=== PATIENT | female | born 1950 | race Caucasian/White ===

== ENCOUNTER 2022-07-28 18:01 | Emergency (ER) | payer OTHER, SELFPAY ==
[2022-07-28 18:14] VITALS: BP 148/89; PULSE 88; RESP 14; TEMP 36.6; O2SAT 96
--- NOTE | 2022-07-28 18:47 | ED.URI ---
HPI - URI/Sore Throat General Chief Complaint: Upper Respiratory Infection Stated Complaint: Sinus Time Seen by Provider: 07/28/22 18:20 Source: patient Mode of arrival: ambulatory Limitations: no limitations History of Present Illness HPI Narrative: Maggy is a 72-year-old female patient presenting to the clinic today with complaints of sinus congestion and cough x3 days. Or chills. She denies any shortness breath or chest pain. Thinks she may have allergies but feels as though the congestion is going down into her chest so she wanted to be evaluated MD elicited complaint: sore throat and nasal congestion Related Data Home Medications Medication Instructions Recorded Confirmed fluoxetine 20 mg capsule 20 mg PO DAILY 07/28/22 07/28/22 methylphenidate HCl 36 mg 36 mg PO DAILY 07/28/22 07/28/22 tablet,extended release 24 hr Allergies Allergy/AdvReac Type Severity Reaction Status Date / Time No Known Allergies Allergy Unknown Verified 07/28/22 18:38 Review of Systems Review of Systems: Pertinent positives per HPI. Patient denies any fever, chills, rash, headache, visual changes, dizziness, shortness of breath, chest pain, palpitations, nausea, vomiting, diarrhea, constipation, abdominal pain, or any urinary issues. PMFSH Comments At the time of my signature, I reviewed and agree with the nursing past medical, surgical, social, and family history. There is no relevant family history pertinent to the patient complaint. Exam Narrative: General: Well-developed, well nourished, in no apparent distress Head: Normocephalic, atraumatic Eyes: Pupils equally round and reactive to light bilaterally, EOM intact, sclera and conjunctive clear, no discharge, lids normal Ears: TMs intact and dull, ear canals clear, no drainage, grossly hearing normal. Nose: Nares patent, clear nasal discharge, no inflammation, no sinus tenderness. Mouth: Oral pharynx without lesions or masses, good dentition, MMM. Postnasal drip Neck: Supple, trachea midline, no enlargement of anterior or posterior cervical nodes, no thyroid masses or goiter palpable. Cardio: Regular rate and rhythm, s1 and s2 normal, no murmur appreciated. Resp: Clear to auscultation bilaterally, no rhonchi, rales, wheezing or rubs Course Course Emergency Course: Portions of this record may have been created with voice recognition software. Level of Care: Express Care Visit Vital Signs Vital signs: Vital Signs Temperature 36.6 C 07/28/22 18:14 Pulse Rate 88 07/28/22 18:14 Respiratory Rate 14 07/28/22 18:14 Blood Pressure 148/89 H 07/28/22 18:14 Pulse Oximetry 96 07/28/22 18:14 Oxygen Delivery Room Air 07/28/22 18:14 Temperature 36.6 C 07/28/22 18:14 Pulse Rate 88 07/28/22 18:14 Respiratory Rate 14 07/28/22 18:14 Blood Pressure 148/89 H 07/28/22 18:14 Pulse Oximetry 96 07/28/22 18:14 Oxygen Delivery Room Air 07/28/22 18:14 Vital signs reviewed MDM - URI/Sore Throat MDM Narrative Medical decision making narrative: At the time of visit patient is resting comfortably on the exam table. COVID test was obtained and was negative in the clinic today. I suspect the patient has URI. Will send a prescription for some prednisone for congestion. Supportive measures were discussed with the patient she voiced understanding discharge instructions agrees to treatment plan. Differential Diagnosis Differential diagnosis: Likely upper respiratory infection, sinusitis, viral infection, influenza and other (COVID) Lab Data Labs: Lab Results 07/28/22 Range/Units 18:20 POC SARS CoV-2 Ag Negative (Negative) Discharge Plan Discharge Clinical Impression: Upper respiratory infection Qualifiers: URI type: unspecified URI Qualified Code(s): J06.9 - Acute upper respiratory infection, unspecified Patient Disposition: Home, Self-Care Condition: Stable Instructions: Antibiotic Form, Upper Respiratory Infect
--- NOTE | 2022-08-04 17:27 | ED.URI ---
HPI - URI/Sore Throat General Chief Complaint: Upper Respiratory Infection Stated Complaint: Sinus Time Seen by Provider: 07/28/22 18:20 Source: patient Mode of arrival: ambulatory Limitations: no limitations Related Data Home Medications Medication Instructions Recorded Confirmed fluoxetine 20 mg capsule 20 mg PO DAILY 07/28/22 07/28/22 methylphenidate HCl 36 mg 36 mg PO DAILY 07/28/22 07/28/22 tablet,extended release 24 hr Allergies Allergy/AdvReac Type Severity Reaction Status Date / Time No Known Allergies Allergy Unknown Verified 08/04/22 17:27 Course Vital Signs Vital signs: Vital Signs Temperature 36.6 C 07/28/22 18:14 Pulse Rate 88 07/28/22 18:14 Respiratory Rate 14 07/28/22 18:14 Blood Pressure 148/89 H 07/28/22 18:14 Pulse Oximetry 96 07/28/22 18:14 Oxygen Delivery Room Air 07/28/22 18:14 Temperature 36.6 C 07/28/22 18:14 Pulse Rate 88 07/28/22 18:14 Respiratory Rate 14 07/28/22 18:14 Blood Pressure 148/89 H 07/28/22 18:14 Pulse Oximetry 96 07/28/22 18:14 Oxygen Delivery Room Air 07/28/22 18:14 MDM - URI/Sore Throat Lab Data Labs: Lab Results 07/28/22 Range/Units 18:20 POC SARS CoV-2 Ag Negative (Negative) Imaging Data My impression: agree with radiologist Radiologist's impression: Clinical Indication: Shortness of breath ?PA and lateral views of the chest: Comparison: None Findings: The lungs are clear, without evidence of focal consolidation or pleural effusion.? Cardiomediastinal silhouette is within normal limits. Bones and soft tissues are unremarkable. ? Impression: ? Normal chest. Discharge Plan Discharge Clinical Impression: Upper respiratory infection Patient Disposition: Home, Self-Care Condition: Stable Instructions: Antibiotic Form, Upper Respiratory Infection (ED) Additional Instructions: COVID testing was negative in the clinic today Take prescription medications only as prescribed-prednisone Increase fluids and stay well hydrated Tylenol/motrin for pain/fever Flonase and OTC antihistamines as directed Vicks vapor rub to open sinuses Sinus rinses for congestion Cepacol spray, cough drops, throat lozenges, warm tea with honey/lemon, gargle salt water to soothe throat BRAT diet for diarrhea Clear liquids x 24 hours then advance as tolerated for nausea/vomiting Go to the ED if you develop a worsening in your condition- high fever not controlled by Tylenol or Motrin, dehydration, weakness, lethargy, shortness of breath, or chest pain. Follow up with your PCP in 3-5 days if symptoms persist. Prescriptions: New prednisone 20 mg tablet 40 mg PO DAILY 5 Days Qty: 10 0RF No Action fluoxetine 20 mg capsule 20 mg PO DAILY methylphenidate HCl 36 mg tablet extended release 24hr 36 mg PO DAILY Follow-up/Referrals: Sanket Qureshi [Other] Time of Disposition: 18:48
== END 2022-07-28 18:55 | disposition home or self-care (01) ==
PROVIDERS: Emergency Provider Nurse Practitioner Family
DX: J06.9 Acute upper respiratory infection, unspecified (principal); Z20.822 Contact with and (suspected) exposure to COVID-19; F98.8 Other specified behavioral and emotional disorders with onset usually occurring in childhood and adolescence
CPT/HCPCS: 87426; 99213; C9803; G0463

== ENCOUNTER 2022-08-04 17:10 | Emergency (ER) | payer OTHER, SELFPAY ==
--- NOTE | ~2022-08-04 | XR_ITS ---
Clinical Indication: Shortness of breath PA and lateral views of the chest: Comparison: None Findings: The lungs are clear, without evidence of focal consolidation or pleural effusion. Cardiome diastinal silhouette is within normal limits. Bones and soft tissues are unremarkable. Impression: Normal chest. Reviewed, dictated and finalized at [facility]. NEL EXECUTIVE Impression: Normal chest.
[2022-08-04 17:28] VITALS: BP 144/82; PULSE 78; RESP 18; TEMP 36.3; O2SAT 100
[2022-08-04 17:30] VITALS: BP 144/82; PULSE 78; RESP 18; TEMP 36.3; O2SAT 100
--- NOTE | 2022-08-04 18:42 | ED.URI ---
HPI - URI/Sore Throat General Chief Complaint: Upper Respiratory Infection Stated Complaint: chest congestion Time Seen by Provider: 08/04/22 17:35 Source: patient Mode of arrival: ambulatory Limitations: no limitations History of Present Illness HPI Narrative: 72 yo F presents with c/o fatigue. States she was out shopping today pushing a cart and felt winded. Also reports 3 days ago did yard work for 2 to 3 hours, picking up limbs, and felt more tired than usual. Pt had recent URI. Was seen here. States cough is better. Took mucinex and prednisone and is done with prescriptions. No recent fever. No SOB or CP at this time. pt reports that she has been very sad since her mother one month ago. States her whole schedule has been off and she is staying up late til 2 or 3am and not eating well. She has a psychaitrist and also has done counseling. 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 She is trying to get back into a normal routine. She also reports that she is a hoarder and that her family has been hard on her about it. She has friends and an uncle that she talks to that help her feel better. She denies SI/HI. All systems reviewed and negative except as noted above. Related Data Home Medications Medication Instructions Recorded Confirmed fluoxetine 20 mg capsule 20 mg PO DAILY 07/28/22 08/04/22 methylphenidate HCl 36 mg 36 mg PO DAILY 07/28/22 08/04/22 tablet,extended release 24 hr Allergies Allergy/AdvReac Type Severity Reaction Status Date / Time No Known Allergies Allergy Unknown Verified 08/04/22 17:27 Review of Systems Review of Systems: CONSTITUTIONAL: Denies fever, chills, or sweats. reports fatigue. EYES: Denies visual changes, redness, or discharge. ENT: Denies rhinorrhea, congestion, sore throat, or otalgia. CARDIOVASCULAR: Denies chest pain, palpitations, or edema. RESPIRATORY: Denies cough or dyspnea. GASTROINTESTINAL: Denies abdominal pain, nausea, vomiting, or diarrhea. GENITOURINARY: Denies dysuria or hematuria. SKIN: Denies rash or itching. MUSCULOSKELETAL: Denies back pain, joint pain, or myalgia. NEUROLOGIC: Denies headache, numbness, or weakness. PSYCHIATRIC: Denies anxiety or depression. All other systems reviewed are negative, except as documented in HPI. PMFSH Comments At time of signature, agree with nursing past medical, surgical, social and family history. There is no relevant family history pertinent to the presenting complaint. Exam Narrative: GENERAL: This is a well-nourished, well-developed patient, in no apparent distress. HEAD: normocephalic, atraumatic. EYES: PERRL. Sclera clear/white. Vision is grossly intact. EARS: External ears normal, auditory canals clear and without drainage, TMs normal without perforation. Hearing grossly intact. NOSE: External nose normal with no obvious nasal discharge, nares without redness, no rhinorrhea. THROAT: Mucous membranes moist, posterior pharynx clear. NECK: Neck supple, non-tender without lymphadenopathy, masses or thyromegaly. CARDIOVASCULAR: Regular rate and rhythm without murmurs, gallops, or rubs. RESPIRATORY: Clear to auscultation. Breath sounds equal bilaterally. No wheezes, rales, or rhonchi. GASTROINTESTINAL: Abdomen soft, non-tender, nondistended. Bowel sounds are active. No hepato-splenomegaly, or palpable masses. No guarding. SKIN: warm, Dry, intact with no suspicious lesions or rash, good texture and turgor. NEURO: awake, alert, and oriented to person, place and time. There were no obvious focal neurologic abnormalities. EXTREMITIES: No joint tenderness, effusion, or edema noted. Course Course Level of Care: Express Care Visit Vital Signs Vital signs: Vital Signs Temperature 36.3 C L 08/04/22 17:28 Pulse Rate 78 08/04/22 17:28 Respiratory Rate 18 08/04/22 17:28 Blood Pressure 144/82 H 08/04/22 17:28 Pulse Oximetry 100 08/04/22 17:28 Oxygen
== END 2022-08-04 19:02 | disposition home or self-care (01) ==
PROVIDERS: Emergency Provider Nurse Practitioner Family
DX: R53.83 Other fatigue (principal); F41.9 Anxiety disorder, unspecified; F98.8 Other specified behavioral and emotional disorders with onset usually occurring in childhood and adolescence
CPT/HCPCS: 71046; 99213; G0463

== ENCOUNTER 2023-05-01 13:30 | Outpatient (RCR) | payer OTHER, SELFPAY ==
--- NOTE | 2023-04-02 16:15 | OPREHPOC ---
Outpatient Therapy Plan of Care This is a Multidisciplinary Plan of Care that may contain components documented by all disciplines (PT, OT, and ST.) PT Problem 1 PT Problem #1 Knowledge Deficit PT Goal 1 Goal 1*indep with HEP PT Problem 2 PT Problem #2 Pain PT Goal 1 Goal 1* pt report pain rating at 3/10 at worst PT Problem 3 PT Problem #3 Impaired Strength PT Goal 1 Goal increase strength of R knee and hip to improve stability to knee joint and improve position: 1* pt perform mat exercises 15 reps with 3# wt 2* pt perform standing exercises with 1 UE support 15 reps with 3# wt
--- NOTE | 2023-04-02 16:16 | PTOPEVAL1 ---
Assessment and note entered by Dionne White, PT Evaluation Information Assessment Status Evaluation Diagnosis R knee pain Onset about 1 year Subjective Information gradual increase in knee pain, without injury or trauma to leg; had injection Mar 18 with decreased pain; ACTIVITY: do not use assistive device; in home, can do all home and self care tasks; cannot do yard work as she used to; is not doing any fitness exercises; Reported Pain Level Pain Score Self Report Additional Pain Score Comments pain range in the past week 0-5; medial knee increase pain: able to walk about 1/2 mile; in bed and move positions decrease pain: sit, rest, aleve PRN do not use heat, ice- instruct on PRN use; pain in L knee also Assessment PT Clinical Summary Ophelia has the diagnosis of R knee pain/OA. She had a knee injection which decreased her pain. She is retired and has decreased activity level, does not do any regular fitness exercises. She is trying to walk a little more. With the evaluation: she has good flexibility of her hips and knees; in standing, valgus knee position with changes in ankle also; strength with mat exercises is good. Skilled PT services are indicated for modalities to decrease pain; therapeutic exercises to increase stability and strength of knee with education for home exercises and pain control. Plan of Care Interventions Electrical Stimulation,Hot Pack/Cold Pack,Manual Therapy,Neuro Re-education,Patient Education,Therapeutic Activities,Therapeutic Exercise,Ultrasound,Other Other Interventions taping PT Services Indicated Yes Treatment Frequency and 1-2x/wk for 4 weeks Duration These treatments will address the objective and functional deficits as defined above. The patient will be advanced safely and appropriately in order for the patient to progress towards his/her prior level of function. Additional exercises will be introduced and as well as a comprehensive home exercise program upon discharge, if needed, ?to ensure carryover of functional gains achieved in the clinic. This treatment plan has been reviewed and agreement upon by the patient.
--- NOTE | 2023-04-10 14:27 | PCPTNOTE ---
Patient did not show up for appointment on 04/10/23. When called she stated she had not put the appointment on her calendar.
--- NOTE | 2023-04-12 14:23 | PCPTNOTE ---
pt called and canceled today's appt due to illness.
--- NOTE | 2023-05-01 14:20 | PTOPDC ---
Assessment and note entered by Dionne White, PT Evaluation Information Assessment Status Discharge Diagnosis R knee pain Onset about 1 year Subjective Information is doing better; saw yesterday- said she could have her knee replaced whenever she wants to have the surgery; exercises have helped, but is not always good to do them, because of stomach issues and diarrhea; is doing everything she needs to do; Reported Pain Level Pain Score Self Report Additional Pain Score Comments pain range in the past week 0- 3/10 increase pain at end of day; standing/walking for few hours, then have to sit down due to knee and back pain; decrease pain: sit, rest is not using ice or pain meds--not need it; Assessment PT Clinical Summary Ophelia has received 6 PT sessions. She called/ canceled 1 and did not show for 1 appointment. Compared to the initial evaluation: pain rating at worst from 5 to 3/10; increase strength of hip and knee; increase home activity tolerance; education for home exercises; The goals were achieved. Discharge PT services. She is to continue with her HEP. Plan of Care PT Services Indicated No
== END 2023-05-01 14:32 | disposition home or self-care (01) ==
LOC: ANHPT 13:30
PROVIDERS: Visit Provider Orthopaedic Surgery
DX: M25.561 Pain in right knee (principal)
CPT/HCPCS: 97110; 97161; 97530; 99199

== ENCOUNTER 2024-09-25 10:48 | Outpatient (CLI) | payer OTHER, SELFPAY ==
[2024-09-25 13:01] LABS: Basophils Percent Auto 0.6 % (0.2-1.2); Eosinophils Absolute Auto 0.1 K/mm3 (0-0.3); Eosinophils Percent Auto 2.7 % (0-4.4); Hematocrit 37.8 % (37.0-47.0); Hemoglobin 12.5 g/dL (12.0-15.0); Immature Granulocyte Absolute 0.03 K/mm3 (0.00-0.031); Immature Granulocyte Percent A 0.6 % (0-0.5); Lymphocytes Absolute Auto 1.22 K/mm3 (0.9-3.2); Lymphocytes Percent Auto 25.2 % (18.3-44.2); Mean Corpuscular HGB Conc 33.1 g/dl (32-36); Mean Corpuscular Volume 90.9 fl (80-100); Mean Platelet Volume 8.5 fl (7.4-10.4); Monocytes Absolute Auto 0.5 K/mm3 (0.1-0.6); Monocytes Percent Auto 9.5 % (2.6-8.5); Neutrophils Percent Auto 61.4 % (45.5-73.1); Platelet Count Result 331 k/mm3 (150-375); Red Blood Count 4.16 M/mm3 (4.2-5.4); Red Cell Distribution Width 13.1 % (11.5-14.5); White Blood Count 4.9 K/mm3 (4.5-10.0)
[2024-09-25 13:16] LABS: Urine Cotinine NEGATIVE
[2024-09-25 14:08] LABS: Hemoglobin A1C 5.3 % (<5.7)
[2024-09-25 14:12] LABS: MRSA (PCR) NOT DETECTED (NOT DETECTE)
--- OUTSIDE RECORDS SUMMARY | 2024-09-26 12:13 | XMS_ITS | Patient Health Record ---
Author Organization [facility] Address [address] [facility] [address] [place] [address] Care Team Providers Care Yard Assistant Name Role Phone Sanket Qureshi MD Primary Care Provider Unavail able Edita Yepez Unavailable [phone] Migration, Provider Unavailable Unavailable Allergies No Known Allergies Reason For Referral No Information Medications Medication SIG (Take, Route, Frequency, Duration) Notes Start Date End Date Status FLUoxetine HCl 20 MG 3 capsule Oral Once a day for 90 days Active Atomoxetine HCl 25 MG 1 capsule Orally o nce daily for 90 days Active Atorvastatin Calcium 20 MG Oral 07/26/2023 Active Social History Tobacco Use: Social History Observation Description Date Details (start date - stop date) Never Smoker NA - NA Sex Assigned At : Social History Observation Description Sex Assigned At Female Household Question Answer Notes Marital status: single Number of adults in household: 1 Tobacco Control (Standard) Question Answer Notes Tobacco use: Nonsmoker Problems Problem Type SNOMED Code ICD Code Onset Dates Problem Status W/U Status Risk Notes Problem Mild recurrent major depression (87709198) Major depressive disorder, recurrent, mild (F33.0) Active confirmed Problem [id number] SHADY (generalized anxiety disorder) (F41.1) Active confirmed Problem 254453919 MDD (major depressive disorder), recurrent episode, mild (F33.0) Active confirmed Problem 88454164 Attention defici t hyperactivity disorder (ADHD), combined type, mild (F90.2) Active confirmed Vital Signs Heart Rate 95 /min 09/17/2024 Height-cm 167.64 cm 09/17/2024 Blood pressure diastolic 100 mm Hg 09/17/2024 Weight-kg 80.29 kg 09/17/2024 Height 66.00 in 09/17/2024 Blood pressure systolic 150 mm Hg 09/17/2024 Weight 177 lbs 09/17/2024 BMI 28.57 kg/m2 09/17/2024 Encounters Encounter Location Date Provider Diagnosis [facility] [place] [address] [address] 10/29/2023 Edita Marleni MDD (major depressiv e disorder), recurrent episode, mild F33.0 ; SHADY (generalized anxiety disorder) F41.1 and Attention deficit hyperactivity disorder (ADHD), combined type, mild F90.2 [facility] [place] [address] 12/26/2023 Edita Marleni MDD (major depressiv e disorder), recurrent episode, mild F33.0 ; SHADY (generalized anxiety disorder) F41.1 and Attention deficit hyperactivity disorder (ADHD), combined type, mild F90.2 [facility] [address] [address] 03/27/2024 Edita Marleni MDD (major depressiv e disorder), recurrent episode, mild F33.0 ; SHADY (generalized anxiety disorder) F41.1 and Attention deficit hyperactivity disorder (ADHD), combined type, mild F90.2 [facility] [place] [address] 06/25/2024 Edita Marleni MDD (major depressiv e disorder), recurrent episode, mild F33.0 ; SHADY (generalized anxiety disorder) F41.1 and Attention deficit hyperactivity disorder (ADHD), combined type, mild F90.2 [facility] [place] [address] 09/17/2024 Edita Marleni Encounter for screening for cardiovascular disorders Z13.6 ; Dietary counseling and surveillance Z71.3 ; Encounter for screening for depression Z13.31 ; MDD (major depressive disorder), recurrent episode, mild F33.0 ; SHADY (generalized anxiety disorder) F41.1 and Attention deficit hyperactivity disorder (ADHD), combined type, mild F90.2 [facility] [place] [address] [address] 10/12/2023 Provider Migration [facility] [employer] [address] [facility] [address] [place] [address] 10/13/2023 Provider Migration Assessments Encounter Date Diagnosis (ICD Code) Assessment Notes Treatment Notes Treatment Clinical Notes Section Notes 10/29/2023 SHADY (generalized anxiety disorder) (ICD-10 - F41.1) Stable Stable, no concerns today. No side effects to current medications . 10/29/2023 MDD (major depressive disorder), recurrent episode, mild (ICD-10 - F33.0) Stable Stable, no concerns today. No side effects to current medications . 12/26/2023 MDD (major depressive disorder), recurrent episode, mild (ICD-10 - F33.0) 03/27/2024 MDD (major depressive disorder), recurrent episode, mild (ICD-10 - F33.0) 06/25/2024 MDD (major depressive disorder), recurrent episode, mild (ICD-10 - F33.0) SSRI/SNRI side effects discussed including but not limited to, gastric upset, nausea, vomiting, diarrhea and/or constipation, weight changes, sexual side effects including loss of libido, increased suicidal thoughts/behavior s in children and young adults, and serotonin syndrome. 09/17/2024 Encounter for screening for cardiovascular disorders (ICD-10 - Z13.6) 09/17/2024 Dietary counseling and surveillance (ICD-10 - Z71.3) 03/27/2024 SHADY (generalized anxiety disorder) (ICD-10 - F41.1) Stable 06/25/2024 SHADY (generalized anxiety disorder) (ICD-10 - F41.1) Stable fluoxetine 60mg daily 10/29/2023 Attention deficit hyperactivity disorder (ADHD), combined type, mild (ICD-10 - F90.2) Restart atomoxetine 10mg daily for ADHD. Stable, no concerns today. No side effects to current medications . 12/26/2023 SHADY (generalized anxiety disorder) (ICD-10 - F41.1) Stable 06/25/2024 Attention deficit hyperactivity disorder (ADHD), combined type, mild (ICD-10 - F90.2) Discussed risks/benefits/al ternatives to atomoxetine, including GI side effects, weight loss, irritability, constipation, sexual dysfunction, increase in blood pressure and liver damage. Patient denies any h/o cardiovascular disease, including hypertension, tachyarrhythmias. 03/27/2024 Attention deficit hyperactivity disorder (ADHD), combined type, mild (ICD-10 - F90.2) 12/26/2023 Attention deficit hyperactivity disorder (ADHD), combined type, mild (ICD-10 - F90.2) 09/17/2024 Encounter for screening for depression (ICD-10 - Z13.31) 09/17/2024 MDD (major depressive disorder), recurrent episode, mild (ICD-10 - F33.0) SSRI/SNRI side effects discussed including but not limited to, gastric upset, nausea, vomiting, diarrhea and/or constipation, weight changes, sexual side effects including loss of libido, increased suicidal thoughts/behavior s in children and young adults, and serotonin syndrome. 09/17/2024 SHADY (generalized anxiety disorder) (ICD-10 - F41.1) Stable fluoxetine 60mg daily 09/17/2024 Attention deficit hyperactivity disorder (ADHD), combined type, mild (ICD-10 - F90.2) Discussed risks/benefits/al ternatives to atomoxetine, including GI side effects, weight loss, irritability, constipation, sexual dysfunction, increase in blood pressure and liver damage. Patient denies any h/o cardiovascular disease, including hypertension, tachyarrhythmias. 12/26/2023 Other Overall stable, continue current medications. Refills sent in. Patient educated on all medications including potential benefits, side effects, risks. Educated on proper dosing schedule and importance of compliance. 06/25/2024 Other Stable, continue current medications. Refills sent in. Patient educated on all medications including potential benefits, side effects, risks. Educated on proper dosing schedule and importance of compliance. Supportive therapy provided regarding hoarding behaviors -Assessment and treatment plan reviewed with patient. -Compliance with treatment plan importance discussed. -Discussed the risks/benefits of this medication -Discussed medication side effects. -Contact office if symptoms worsen. -Discussed that it can take up to 6-8 weeks to see full therapeutic effects of psychotropic medications. -Crisis prevention hotline 988. 09/17/2024 Other Increase atomoxetine to 25mg daily for focus, concentration, forgetfulness. Patient educated on all medications including potential benefits, side effects, risks. Educated on proper dosing schedule and importance of compliance. Cont counseling with Briana -Assessment and treatment plan reviewed with patient. -Compliance with treatment plan importance discussed. -Discussed the risks/benefits of this medication -Discussed medication side effects. -Contact office if symptoms worsen. -Discussed that it can take up to 6-8 weeks to see full therapeutic effects of psychotropic medications. -Crisis prevention hotline 849. Plan Of Treatment Next Appt Details Provider Name:Edita Yepez, 11/30/2024 01:00:00 PM, [facility], [facility] [address], [place], [address], Insurance Providers Payer Name Payer Address Payer Phone Subscriber Number Group Number Insured Name Patient Relationship to Insured Coverage Start Date Coverage End Date [employer] Medicare Replacement/ Advantage - Hmo [address] [place] [phone] [id number] DANAE ADAM Self - patient is the insured Medical (General) History Medical History History ICD Code Problems: Attention deficit hyperactivit y disorder, combined type Generalized anxiety disorder Mild recurrent major depression , Hospitalization History Reason Date(Month/Year) No hx IP admissions
--- OUTSIDE RECORDS SUMMARY | 2024-09-26 12:13 | XMS_ITS | Clinical Summary ---
Author Organization [facility] Address [address] [place] [address] Care Team Providers Care Social Media Senior Associate Name Role Phone Sanket Qureshi MD Primary Care Provider [phone] Allergies No known active allergies Medications multivitamin (DAILY-VERENA) tablet Take 1 Tablet by mouth daily. Active cetirizine (ZyrTEC) 10 mg tablet Take 10 mg by mouth daily. Active FLUoxetine (PROzac) 20 mg capsuleIndications :Severe episode of recurrent major depressive disorder, without psychotic features (CMS/HCC) Take 1 Capsule (20 mg) by mouth daily. 30 Capsule 3 08/03/19 21 Active Additional Information Patient taking differently:20 mg Oral DAILY,Takes 3 capsules in the morning, Reported on 09/23/2024 methylphenidate HCl (CONCERTA) 36 mg Extended Release tablet Take 1 Tablet by mouth daily. 03/14/20 21 Active vitamin B complex Tablet Sustained Release Take 1 Tablet by mouth daily. Active atomoxetine (STRATTERA) 25 mg capsule Take 10 mg by mouth daily. 03/28/20 23 Active naproxen sodium (ALEVE) 220 mg Tablet Take 220 mg by mouth. Active atorvastatin (LIPITOR) 20 mg tabletIndications: Mixed hyperlipidemia Take 1 Tablet (20 mg) by mouth daily at bedtime. For control of cholesterol 90 Tablet 2 09/24/19 25 Active atorvastatin (LIPITOR) 20 mg tabletIndications: Mixed hyperlipidemia Take 1 Tablet (20 mg) by mouth daily at bedtime. 90 Tablet 1 03/19/20 24 025 Discontin ued(Reord er) Active Problems Problem Noted Date Diagnosed Date Hoarding disorder 12/05/2021 Overview (12/05/2021): Supportive counseling recommend discuss with Dr Schuster. Adult ADHD 12/05/2021 Overview (12/05/2021): Dr Schuster Primary osteoarthritis of right knee 12/05/2021 Overview (12/05/2021): /Program/avoid overuse/OTC analgesics as needed Moderate recurrent major depression 11/10/2020 Overview (11/10/2020): Stay on same meds, fluoxetine 20 mg per day . Doing well /Fu 03/16 Wellness Insurance coverage problems 11/10/2020 Overview (11/10/2020): Encouraged pt to enroll in Medicare, she has the information at home . Mixed hyperlipidemia 05/26/2018 Encounters Date Type Department Care Team Description 09/25/2024 Telephone [facility] [address] [place] [phone] Sanket Qureshi MD Provider Call 09/23/2024 10:00 AM CDT Office Visit [facility] [address] [place] [phone] Sanket Qureshi MD Preop examination (Primary Dx); Screening for disorder of blood and blood-forming organs; Primary osteoarthritis of right knee; Mixed hyperlipidemia; Moderate recurrent major depression ([facility]); Encounter for long-term (current) use of medications; Adult ADHD 09/13/2024 Refill [facility] [address] [place] [phone] Sanket Qureshi MD Mixed hyperlipidemia 09/09/2024 Telephone [facility] [address] [place] [phone] Sanket Qureshi MD Pre op clearance form; Patient Communication 09/09/2024 Abstract [facility] [address] [place] [phone] Sanket Qureshi MD 09/09/2024 Telephone [facility] [address] [place] [address] Sanket Qureshi MD Provider Call 08/27/2024 Abstract [facility] [address] [place] [address] Sanket Qureshi MD 08/24/2024 Telephone [facility] [address] [place] [phone] Sanket Qureshi MD Needs Orders Written; Provider Call 08/12/2024 External Device Data ST[facility] ABSTRACTION Provider, Abstract 08/01/2024 External Device Data [place] ABSTRACTION Provider, Abstract 07/31/2024 External Device Data [place]STRACTION Provider, Abstract 07/29/2024 External Device Data [place]STRACTION Provider, Abstract 07/14/2024 External Device Data [place]STRACTION Provider, Abstract from Last 3 Months Immunizations Immunization Administration Dates Next Due (ADACEL/BOOSTRIX)(10 YR UP) TDAP VACCINE, 0.5ML, IM 05/24/2009 (PFIZER EDDIE)(12 YR UP PRIMA RY SERIES) COVID-19 VACCINE - EMERGENCY USE AUTHORIZATION, MRNA, EDDIE(PF) 30 MCG/0.3 ML IM SUSP 04/06/2022 (PFIZER)(12 YR UP) COVID-19 VACCINE - EMERGENCY USE AUTHORIZATION, MRNA, [id number](PF) 30 MCG/0.3 ML IM SUSP 07/08/2021,08/20/2020,07/21/2020 (PNEUMOVAX 23)(50 YRS UP) PN EUMOCOCCAL POLYSACCHARIDE (PPV23) 0.5 ML, IM 08/03/2019 INFLUENZA VACCINE HIGH DOSE QUADRIVALENT 65 YR UP PF IM 03/20/2021,02/09/2020 INFLUENZA VACCINE QUADRIVALE NT 3 YR UP PF IM 07/21/2018 Influenza Seasonal Unspecifi ed Formulation IM 06/24/2017,06/21/2016,05/13/2014 PNEUMOVAX (PPSV23) pneumococ tanesha polysaccharide 23-valent Vaccine 11/18/2013 PREVNAR (PCV13) pneumococcal 13-valent conjugate Vaccine 06/21/2016 Zoster Vaccine Live SQ 05/13/2014 Family History Medical History Relation Name Comments Pancreatic Cancer Father Hypertension Mother Ngoc Croft Healthy Sister 1 Roseanna Thyroid Disease Sister 1 Roseanna Healthy Sister 2 Lili Bentiez Relation Name Status Comments Father (Age 72) of pa ncreatic cancer Maternal Grandfather Maternal Grandmother Mother Ngoc Croft (Age 93) 3 post hip fracture and complications, in [facility] Paternal Grandfather Paternal Grandmother Sister 1 Roseanna Alive Sister 2 Lili Benitez Alive Social History Tobacco Use Types Packs/Day Years Used Date Smoking Tobacco: Never Smokeless Tobacco: Never Tobacco Cessation:Counseling Given: Not Answered Alcohol Use Standard Drinks/Week Comments Yes 2 (1 standard drink = 0.6 oz pur e alcohol) daily Education Answer Date Recorded What is the highest level of school you have completed or the highest degree you have received? 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 Gender Identity Not on file Sexual Orientation Not on file Last Filed Vital Signs Vital Sign Reading Time Taken Comments Blood Pressure 118/68 09/23/2024 10:11 AM CDT Pulse 78 09/23/2024 10:11 AM CDT Temperature 36.4 C (97.6 F) 08/02/2020 1:30 PM GROUND OPER[employer]BER Respiratory Rate 18 01/09/2023 12:50 PM CDT Oxygen Saturation 99% 01/13/2024 12:49 PM CDT Inhaled Oxygen Concentration - - Weight 80.1 kg (176 lb 8 oz) 09/23/2024 10:11 AM CDT Height 167.6 cm (5' 6 ) 09/23/2024 10:11 AM CDT Body Mass Index 28.49 09/23/2024 10:11 AM CDT Plan of Treatment Upcoming Encounters Date Type Department Care Team (Late st Contact Info) Description 01/13/2025 1:00 PM CDT Office Visit [facility] [address] [place] [address] Sanket Qureshi MD [address] [place] [address] Health Maintenance Due Date Last Done Comments FIT/ DNA Q 3 YEARS (AUTO ORDER) 1969 FIT/FOBT Q 1 YEAR (AUTO ORDER) 1969 FLEX SIG/CT COLONOGRAPHY Q 5 YEARS (AUTO ORDER) 1969 BREAST CANCER SCREENING 1991 FIT-DNA Q 3 years 1996 FIT/FOBT Q 1 year 1996 Flex Sig/CT Colonography Q 5 years 1996 ZOSTER VACCINE (2 of 3) 07/08/2014 05/13/2014 OSTEOPOROSIS SCREENING 2016 DTAP/TDAP/TD VACCINES (2 - T d or Tdap) 05/24/2019 05/24/2009 INFLUENZA VACCINE (#1) 2023 , 02/09/2020, 07/21/2018, Additional history exists COVID-19 Vaccine ( - 2023-2 5 season) 2024 04/06/2022, 07/08/2021, 08/20/2020, Additional history exists COLORECTAL CANCER SCREENING (AUTO ORDER) 04/08/2024 04/08/2014 COLORECTAL SCREENING 04/08/2024 04/08/2014, 04/08/20 14 Colorectal Cancer Screening (AUTO ORDER) 04/08/2024 Colorectal Cancer Screening 04/08/2024 [place] Preventative Visit/Annual Wellness Visit 05/27/2024 01/13/2024, 01/09/2023, 12/05/2021, Additional history exists RSV VACCINE (60+ or ) (1 - 1-dose 75+ series) 2026 PNEUMOCOCCAL VACCINE 50+ YEARS Completed 0 08/03/2019, 06/21/2016, 11/18/2013 Procedures Procedure Name Priority Date/Time Associated Diagnosis Comments PROTIME-INR Routine 09/23/2024 2:41 PM CDT CBC WITHOUT DIFFERENTIAL Routine 09/23/2024 2:41 PM CDT Preop examination Encounter for long-term (current) use of medications COMPREHENSIVE METABOLIC PANEL Routine 09/23/2024 2:41 PM CDT Preop examination Encounter for long-term (current) use of medications EKG 12-LEAD Routine 09/23/2024 Preop examination Mixed hyperlipidemia ENDOSCOPY, COLON, SCREENING Routine 04/08/2014 from Last 3 Months or Most Recently Relevant to Health Maintenance Results * PROTIME-INR (09/23/2024 2:41 PM CDT) INR 1.0 [facility] Comment: Reference Range 0.9-1.1 Moderate-intensity Warfarin Therapy 2.0-3.0 Higher-intensity Warfarin Therapy 3.0-4.0 PROTIME 11.1 9.0 - 11.5 sec [facility] Comment: For additional information, please refer to http://education.Intern [place]/faq/XLP751 (This link is being provided for informational/ educational purposes only.) Test Performed at: [place] [address] [place] [address] Gucci Tipton 09/23/2024 2:4 1 PM CDT 09/23/2024 2:41 PM CDT us Sanket Qureshi MD HEMATOLOGY ORDERABLES Final Re sult [facility] [phone] [place] [address] [place] [address] * CBC WITHOUT DIFFERENTIAL (09/23/2024 2:41 PM CDT) WBC 6.5 3.8 - 10.8 Thousand/u L [facility] RBC 4.02 3.80 - 5.10 Million/uL [facility] HEMOGLOBIN 12.2 11.7 - 15.5 g/dL [facility] HEMATOCRIT 37.1 35.0 - 45.0 % [facility] MCV 92.3 80.0 - 100.0 fL [facility] MCH 30.3 27.0 - 33.0 pg [facility] MCHC 32.9 32.0 - 36.0 g/dL [facility] Comment: For adults, a slight decrease in the calculated MCHC value (in the range of 30 to 32 g/dL) is most likely not clinically significant; however, it should be interpreted with caution in correlation with other red cell parameters and the patient's clinical condition. RDW 12.7 11.0 - 15.0 % [facility] PLATELETS 334 140 - 400 Thousand/u L [facility] MPV 8.9 7.5 - 12.5 fL [facility] Comment: Test Performed at: [facility] [address] [place] [id number] Gucci Tipton MD Blood 09/23/2024 2:41 PM CDT 09/23/2024 2:41 PM CDT us Sanket Qureshi MD HEMATOLOGY ORDERABLES Final Re sult [facility] [phone] [address] * (ABNORMAL) COMPREHENSIVE METABOLIC PANEL (09/23/2024 2:41 PM CDT) Pathologist [facility] GLUCOSE 95 65 - 99 mg/dL [facility] Comment: Fasting reference interval BUN 12 7 - 25 mg/dL [facility] CREATININE 0.89 0.60 - 1.00 mg/dL [facility] GFR 68 > OR = 60 mL/min/1. 73m2 [facility] BUN/CREAT RATIO SEE NOTE: 6 - 22 (calc) [facility] Comment: Not Reported: BUN and Creatinine are within reference range. SODIUM 129(L) 135 - 146 mmol/L [facility] POTASSIUM 4.1 3.5 - 5.3 mmol/L [facility] CHLORIDE 95(L) 98 - 110 mmol/L [facility] CO2 26 20 - 32 mmol/L [facility] CALCIUM 9.0 8.6 - 10.4 mg/dL [facility] TOTAL PROTEIN 6.8 6.1 - 8.1 g/dL [facility] ALBUMIN 4.4 3.6 - 5.1 g/dL [facility] GLOBULIN 2.4 1.9 - 3.7 g/dL (calc) [facility] ALBUMIN/GLOBULIN RATIO 1.8 1.0 - 2.5 (calc) [facility] BILIRUBIN TOTAL 0.7 0.2 - 1.2 mg/dL [facility] ALKALINE PHOSPHATASE 77 37 - 153 U/L [facility] AST 26 10 - 35 U/L [facility] ALT 31(H) 6 - 29 U/L [facility] Comment: Test Performed at: [facility] [address] [place] [address] Gucci Tipton MD Blood 09/23/2024 2:41 PM CDT 09/23/2024 2:41 PM CDT Sanket Qureshi MD CHEMISTRY ORDERABLES Final Res ult Performing Organization Address [facility]/State/ZIP Co de Phone Number [facility] [phone] [facility] [address] [place] [address] * EKG 12-LEAD (09/23/2024) Sanket Qureshi MD ECG ORDERABLES Final Result [facility] CLIA# [id number] [address] [place] [address] * ENDOSCOPY, COLON, SCREENING (04/08/2014) Abstract Provider GI PROCEDURE ORDERABLES Edited Result - Final Performing Organization Address City/[facility]/ZIP Co de Phone Number [facility] CLIA# [id number] [address] [place] [address] from Last 3 Months or Most Recently Relevant to Health Maintenance [facility] Care Teams Social Media Senior Associate Relationship Specialty Start Date End Date Sanket Qureshi MD PCP - General Family Practice 06/18/18
--- OUTSIDE RECORDS SUMMARY | 2024-09-26 12:13 | XMS_ITS | Encounter Summary ---
Author Organization [facility] Address 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 Gender Identity Not on file Sexual Orientation Not on file documented as of this encounter Plan of Treatment Upcoming Encounters Date Type Department Care Team (Late st Contact Info) Description 01/13/2025 1:00 PM CDT Office Visit [facility] [place] [address] [place] [address] Sanket Qureshi MD [address] [place] [address] documented as of this encounter Visit Diagnoses Not on filedocumented in this encounter Care Teams Bpm Analyst Relationship Specialty Start Date End Date Sanket Qureshi MD PCP - General Family Practice 06/18/18 documented as of this encounter
--- OUTSIDE RECORDS SUMMARY | 2024-09-26 12:13 | XMS_ITS | Encounter Summary ---
Author Organization [facility] Address 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 Gender Identity Not on file Sexual Orientation Not on file documented as of this encounter Plan of Treatment Upcoming Encounters Date Type Department Care Team (Late st Contact Info) Description 01/13/2025 1:00 PM CDT Office Visit [facility] [place] [address] [place] [address] Sanket Qureshi MD [address] [place] [address] documented as of this encounter Visit Diagnoses Not on filedocumented in this encounter Care Teams Banquet Coordinator Relationship Specialty Start Date End Date Sanket Qureshi MD PCP - General Family Practice 06/18/18 documented as of this encounter
== END 2024-09-25 10:49 | disposition home or self-care (01) ==
LOC: ANHSURGERY 10:57
PROVIDERS: Visit Provider Orthopaedic Surgery
DX: M17.11 Unilateral primary osteoarthritis, right knee (principal); Z01.818 Encounter for other preprocedural examination
CPT/HCPCS: 80307; 83036; 85025; 86850; 86900; 86901; 87641

== ENCOUNTER 2024-10-05 00:47 | Day surgery (SDC) | payer OTHER, SELFPAY ==
[2024-09-25 11:08] VITALS: BP 124/74; PULSE 99; RESP 16; TEMP 36.3; O2SAT 97; BMI 25.4
--- NOTE | 2024-09-25 11:49 | PC.NURSE ---
Addendum entered by Torrie Irving RN 09/25/24 12:02: PT is aware to Follow up with her PCP immediately if she would have any further thoughts of suicide/ideation- Dr Qureshi is working closely w pt and pt sister is RN here with her and aware too. Original Note: Report to the Outpatient Waiting Room, entrance under the green pavilion located off [facility], at time _0800am on date __10/05/24 . Planned Procedure Time: _1000am .? Time changes happen often and if your time is changed the preop area will call you the afternoon before. - You and your visitor will be asked to self-screen and do not enter if you have any COVID symptoms. Please call surgeon if you need to reschedule. - A mask is optional within the hospital at this time. Patients may have clear liquids (water, carbonated beverages, clear teas, apple juice) until 3 hours prior to surgery with a maximum of 20 ounces. - No food from midnight until time of surgery and no smoking, or chewing tobacco (or any form of nicotine). No chewing gum, candy or mints. (0700am) Take only the following medications with a SIP of water on the morning of surgery: ___Fluoxetine and Tylenol if needed DO NOT STOP ANY OF YOUR OTHER PRESCRIPTION MEDICATIONS PRIOR TO SURGERY EXCEPT THE FOLLOWING Hold all vitamins and supplements for 3 days per anesthesiologist. Date of the last dose is 10/01/24 Medications to discontinue per physician Christopher for [address] Lange Date to take last dose___09/29/24 Please no make-up, nail kiswahili, hairspray, perfume, deodorant, or body powder the day of surgery.? No jewelry (including any body piercings) or valuables the day of surgery, leave them at home.? Please take a shower or bath the night before, & the morning of, surgery with an antibacterial soap.? Wear comfortable, loose fitting clothing.? Bring overnight bag, cell phone claim inspector and robe, and loose fitting clothing. - Jewelry must be removed prior to entering the operating room.? Rings and piercings that are not removed may be cut off. - The hospital will not accept responsibility for valuables.? - Please leave all valuables, including medications, at home the day of surgery. If you are going home after surgery, a licensed long haul truck driver must drive you home.? - NO public transportation without another adult if you receive anesthesia. - We recommend that an adult stay with you for 24 hours following discharge. - We also recommend that you do not drive, make important decision, drink alcoholic beverages, or take any drugs that were not prescribed by your health care provider for at least 24 hours after your discharge time. Follow any additional instructions given to you from your surgeon. Telephone instructions given to __Patient and Sister Roseanna here and asked if any additional questions and then verbalized understanding. Patient advised to call surgeon office or pre surgery nurse liaison [phone] if any additional questions.
--- NOTE | 2024-10-01 07:26 | P.HP_ITS ---
H&P: HPI History of Present Illness Date/Time: 10/01/24 07:26 Chief Complaint: Patient has knee pain right. She has axgb-pj-ykcw arthritis with varus deformity. She has failed conservative treatment. She would like to consider knee replacement surgery. Review of Systems Musculoskeletal: Musculoskeletal: Reports arthralgias, Reports joint swelling and Reports stiffness Neurologic: Reports abnormal gait [facility] Past Medical History Medical History Depression ADHD Hyperlipidemia Surgical History Surgical History History of lumpectomy of left breast History of hernia repair Family History Family History Father Pancreatic cancer Mother Heart disease Social History Social History Smoking status: Never smoker Alcohol intake: current Alcohol use details: 1 per month Substance use: never Substance use type: does not use Do You Feel Safe in your Home?: Yes Lack of Transportation: No Lack of Food: Never True Current Housing: I Have Housing Concerned About Future Housing: No Difficulty Paying Gas/Electric Bills: No Difficulty Paying for Meds: No Currently Unemployed: No Education: Bachelor's Degree Difficulty w/ Childcare or Family Care: No Living arrangements: alone Occupation/Education: retired Spiritual care concerns: No Meds Home Medications and Allergies Home Medications ?Medication ?Instructions ?Recorded ?Confirmed ?Type fluoxetine 20 mg capsule 20 mg PO DAILY 07/28/22 09/25/24 History atorvastatin 20 mg tablet 20 mg PO DAILY 03/18/23 09/25/24 History cetirizine 10 mg capsule (All Day 10 mg PO DAILY PRN allergy symptoms 03/18/23 09/25/24 History Allergy (cetirizine)) multivitamin 1 tablet PO DAILY 03/18/23 09/25/24 History B complex 11-folic acid 1 mg-C 100 1 tablet PO DAILY 09/25/24 09/25/24 History mg-biotin 300 mcg-zinc 50 mg tablet atomoxetine 10 mg capsule 10 mg PO DAILY 09/25/24 09/25/24 History naproxen sodium 220 mg capsule 440 mg PO Q12H PRN pain 09/25/24 09/25/24 History (Aleve) Allergies Allergy/AdvReac Type Severity Reaction Status Date / Time No Known Allergies Allergy Unknown Verified 09/25/24 11:02 Exam Narrative: On exam she has motion of her right knee from about 5-100 degrees. She has varus deformity. She has grinding crepitus and a manipulation she walks with an antalgic gait. Neurologically she is to be grossly intact. Eyes: General: appearance normal, both eyes and all related structures Neck: Neck: supple Resp: Effort & Inspection: normal respiratory effort Cardio: Rate: regular rate Rhythm: regular rhythm Assessment and Plan Assessment and plan (1) Osteoarthritis of right knee: Code(s): M17.11 - Unilateral primary osteoarthritis, right knee Status: Acute Assessment and Plan: Patient has osteoarthritis of her right knee. She has esff-jh-svzn changes. At this point she has failed conservative treatment and would like to consider knee replacement surgery. I discussed risks, benefits, limitations, and alternatives with the patient in detail. She agrees and understands would like to proceed. Will proceed with total knee arthroplasty on the right. She does have arthritis on the left knee as well.
[2024-10-05] VITALS (15 sets, daily range): BP systolic 115–142; BP diastolic 69–88; PULSE 68–83; RESP 12–20; TEMP 36.2–36.8; O2SAT 71–99
--- NOTE | ~2024-10-05 | XR_ITS ---
[id number] Ordering provider: Red Lange MD History: . POST RIGHT TKA . Comparison: None. FINDINGS: BONES: No acute fracture or dislocation. JOINT SPACES: Total knee arthroplasty. SOFT TISSUES: Postoperative changes in the soft tissues. IMPRESSION: No acute osseous abnormality right knee. Total knee arthroplasty. Postoperative changes in the subcutaneous tissues. Reviewed, dictated and finalized at location A.
--- OUTSIDE RECORDS SUMMARY | 2024-10-05 00:51 | XMS_ITS ---
Author Organization [facility] Address [facility] [address] [address] Care Team Providers Care Chaser Tar Name Role Phone Sanket Qureshi MD Primary Care Provider Unavail Edita Chen Unavailable [phone] REASON FOR VISIT f/u Social History Sex Assigned At : Social History Observation Description Sex Assigned At Female Encounters Encounter Location Date Provider Diagnosis [facility] [address] [facility] [address] [address] 10/02/2024 Edita Yepez Plan Of Treatment Next Appt Details Provider Name:Edita Yepez, 11/30/2024 01:00:00 PM, [address], [facility], [place], [address], Progress Notes * DANAE ADAM GDOB:[birth year] (74 yo F)Acc No.[id number]:10/02/2024 Patient: DANAE ARIAS Provider: JENA JENNINGSHNP :1950 A ge:74 Y S ex:Female Date:10/02/2024 Address:[address] [place] [address], [facility] Pcp:Sanket Qureshi MD Subjective: * Chief Complaints: * 1 . F/u. * Medical History: Objective: * Vitals: Assessment: Plan: * Treatment: * Billing Information: * Visit Code: * Procedure Codes: * Electronic signature of CHASE Gipson on 10/05/2024 at 12:51 AM CDT Sign off status: Pending * Provider: CHASE JENNINGS Date: 10/02/2024 Generated for Siva jordan/Petra/Isaiah on: 0 10/05/2024 12:51 AM CDT
--- OUTSIDE RECORDS SUMMARY | 2024-10-05 00:51 | XMS_ITS | Encounter Summary ---
Author Organization [facility] Address [address] [place] [address] Care Team Providers Care Bindery Leadperson Name Role Phone Sanket Qureshi MD Primary Care Provider Encounter Details Date Type Department Care Team (Late st Contact Info) Description 10/28/1998 Outpatient Historical [facility] DEPT OF FAMILY MEDICINE Sanket Qureshi MD [address] [place] [address] Social History Tobacco Use Types Packs/Day Years Used Date Smoking Tobacco: Never Assessed Comments Unknown Sex and Gender Information Value Date Recorded Sex Assigned at Not on file Legal Sex Female 4:58 AM BOX OFFICE AGENT Gender Identity Not on file Sexual Orientation Not on file documented as of this encounter Plan of Treatment Upcoming Encounters Date Type Department Care Team (Late st Contact Info) Description 01/13/2025 1:00 PM CDT Office Visit [facility] [place] [address] [place] [address] Sanket Qureshi MD [address] [place] [address] documented as of this encounter Visit Diagnoses Not on filedocumented in this encounter Care Teams Bindery Leadperson Relationship Specialty Start Date End Date aSnket Qureshi MD PCP - General Family Practice 06/18/18 documented as of this encounter
--- OUTSIDE RECORDS SUMMARY | 2024-10-05 00:51 | XMS_ITS | Encounter Summary ---
Author Organization [facility] Address [address] [place] [address] Care Team Providers Care Laboratory Inspector Name Role Phone Sanket Qureshi MD Primary Care Provider Encounter Details Date Type Department Care Team (Late st Contact Info) Description 01/13/1999 Outpatient Historical HIS [facility] DEPT OF FAMILY MEDICINE Sanket Qureshi MD [address] [place] [address] Social History Tobacco Use Types Packs/Day Years Used Date Smoking Tobacco: Never Assessed Comments Unknown Sex and Gender Information Value Date Recorded Sex Assigned at Not on file Legal Sex Female 4:58 AM CLINICAL APPLICATION SPECIALIST Gender Identity Not on file Sexual Orientation Not on file documented as of this encounter Plan of Treatment Upcoming Encounters Date Type Department Care Team (Late st Contact Info) Description 01/13/2025 1:00 PM CDT Office Visit [facility] [place] [address] [place] [address] Sanket Qureshi MD [address] [place] [address] documented as of this encounter Visit Diagnoses Not on filedocumented in this encounter Care Teams Laboratory Inspector Relationship Specialty Start Date End Date Sanket Qureshi MD PCP - General Family Practice 06/18/18 documented as of this encounter
--- OUTSIDE RECORDS SUMMARY | 2024-10-05 00:51 | XMS_ITS | Patient Health Record ---
Author Organization [facility] [employer] Address [address] [facility] [address] [place] [address] Care Team Providers Care Industrial Technologist Name Role Phone Sanket Qureshi MD Primary Care Provider Unavail able Edita Yepez Unavailable [phone] Migration, Provider Unavailable Unavailable Allergies No Known [...] Risk Notes Problem Mild recurrent major depression (98379385) Major depressive disorder, recurrent, mild (F33.0) Active confirmed Problem 39408183 SHADY (generalized anxiety disorder) (F41.1) Active confirmed Problem [id number] MDD (major depressive disorder), recurrent episode, mild (F33.0) Active confirmed Problem 71596379 Attention defici t hyperactivity disorder (ADHD), combined type, 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) Active confirmed Vital Signs Heart Rate 95 /min 09/17/2024 Height-cm 167.64 cm 09/17/2024 Blood pressure diastolic 100 mm Hg 09/17/2024 Weight-kg 80.29 kg 09/17/2024 Height 66.00 in 09/17/2024 Blood pressure systolic 150 mm Hg 09/17/2024 Weight 177 lbs 09/17/2024 BMI 28.57 kg/m2 09/17/2024 Encounters Encounter Location Date Provider Diagnosis [facility] [employer] [address] [address] 10/29/2023 Edita Marleni MDD (major depressiv e disorder), recurrent episode, mild F33.0 ; SHADY (generalized anxiety disorder) F41.1 and Attention deficit hyperactivity disorder (ADHD), combined type, mild F90.2 [facility] [employer] [address] 12/26/2023 Edita Marleni MDD (major depressiv e disorder), recurrent episode, mild F33.0 ; SHADY (generalized anxiety disorder) F41.1 and Attention deficit hyperactivity disorder (ADHD), combined type, mild F90.2 [facility] [employer] [address] 03/27/2024 Edita Marleni MDD (major depressiv e disorder), recurrent episode, mild F33.0 ; SHADY (generalized anxiety disorder) F41.1 and Attention deficit hyperactivity disorder (ADHD), combined type, mild F90.2 [facility] [employer] [address] 06/25/2024 Edita Marleni MDD (major depressiv e disorder), recurrent episode, mild F33.0 ; SHADY (generalized anxiety disorder) F41.1 and Attention deficit hyperactivity disorder (ADHD), combined type, mild F90.2 [facility] [employer] [address] 09/17/2024 Edita Marleni Encounter for screening for cardiovascular disorders Z13.6 ; Dietary counseling and surveillance Z71.3 ; Encounter for screening for depression Z13.31 ; MDD (major depressive disorder), recurrent episode, mild F33.0 ; SHADY (generalized anxiety disorder) F41.1 and Attention deficit hyperactivity disorder (ADHD), combined type, mild F90.2 [facility] [employer] [address] [address] 10/12/2023 Provider Migration [facility] [employer] [address] [facility] [address] [place] [address] 10/13/2023 Provider Migration Assessments Encounter Date Diagnosis [...] effects of psychotropic medications. -Crisis prevention hotline 000. Plan Of Treatment Next Appt Details Provider Name:Edita Yepez, 11/30/2024 01:00:00 PM, [facility] [address], [facility], [place], [address], Insurance Providers Payer Name Payer Address Payer Phone Subscriber Number Group Number Insured Name Patient Relationship to Insured Coverage Start Date Coverage End Date [employer] Medicare Replacement/ Advantage - Hmo [address] [place] [phone] [id number] DANAE ADAM Self - patient is the insured Medical (General) History Medical History History ICD Code Problems: Attention deficit hyperactivit y disorder, combined type Generalized anxiety disorder Mild recurrent major depression , Hospitalization History Reason Date(Month/Year) No hx IP admissions
--- OUTSIDE RECORDS SUMMARY | 2024-10-05 00:51 | XMS_ITS | Clinical Summary ---
Author Organization [facility] Address [address] [place] [address] Care Team Providers Care Manager Of Exhibitions And Collections Name Role Phone Sanket Qureshi MD Primary Care Provider [phone] Allergies No known active allergies Medications multivitamin [...] Encounters Date Type Department Care Team Description 10/02/2024 Telephone [facility] [address] [place] [address] Sanket Qureshi MD Care Plan 09/30/2024 Telephone [facility] [address] [place] [address] Sanket Qureshi MD Provider Call; Provider Call; Provider Call 09/27/2024 Results Follow-Up [facility] [address] [place] [address] Sanket Qureshi MD COMPREHENSIVE METABOLIC PANEL, CBC WITHOUT DIFFERENTIAL, PROTIME-INR, BASIC METABOLIC PANEL 09/25/2024 Telephone [facility] [address] [place] [address] Sanket Qureshi MD Provider Call 09/23/2024 10:00 AM CDT Office Visit [facility] [address] [place] [address] Sanket Qureshi MD Preop examination (Primary Dx); Screening for disorder of blood and blood-forming organs; Primary osteoarthritis of right knee; Mixed hyperlipidemia; Moderate recurrent major depression (CMS/HCC); Encounter for long-term (current) use of medications; Adult ADHD 09/13/2024 Refill [facility] [address] [place] [address] Sanket Qureshi MD Mixed hyperlipidemia 09/09/2024 Telephone [facility] [address] [place] [address] Sanket Qureshi MD Pre op clearance form; Patient Communication 09/09/2024 Abstract [facility] [address] [place] [address] Sanket Qureshi MD 09/09/2024 Telephone [facility] [address] [place] [address] Sanket Qureshi MD Provider Call 08/27/2024 [employer] [address] [place] [address] Sanket Qureshi MD 08/24/2024 [facility] [address] [place] [address] Sanket Qureshi MD Needs Orders Written; Provider [...] COVID-19 VACCINE - EMERGENCY USE AUTHORIZATION, MRNA, [id number](PF) 30 MCG/0.3 ML IM SUSP 07/08/2021,08/20/2020,07/21/2020 (PNEUMOVAX [...] Sister 1 Roseanna Healthy Sister 2 Lili Benitez Relation Name Status Comments Father (Age 72) of pa ncreatic cancer Maternal Grandfather Maternal Grandmother Mother Ngoc Croft (Age 93) 3 post hip fracture and complications, in [facility] Paternal Grandfather Paternal Grandmother Sister 1 Roseanna [...] on file Legal Sex Female 4:58 AM CAUSTICS LOADER Gender Identity Not on file Sexual Orientation Not on file Last Filed Vital Signs Vital Sign Reading Time Taken Comments Blood Pressure 118/68 09/23/2024 10:11 AM CDT Pulse 78 09/23/2024 10:11 AM CDT Temperature 36.4 C (97.6 F) 08/02/2020 1:30 PM CAUSTICS LOADER Respiratory Rate 18 01/09/2023 12:50 PM CDT [...] [facility] [place] [address] [place] [address] Sanket Qureshi MD [address] [place] [address] Health Maintenance Due Date Last [...] 04/08/2024 Colorectal Cancer Screening 04/08/2024 Medicare [place] ([place]) Preventative Visit/Annual Wellness Visit 05/27/2024 01/13/2024, 01/09/2023, 12/05/2021, Additional history exists RSV VACCINE (60+ or ) (1 - 1-dose 75+ series) 2026 PNEUMOCOCCAL VACCINE 50+ YEARS Completed 0 08/03/2019, 06/21/2016, 11/18/2013 Procedures Procedure Name Priority Date/Time Associated Diagnosis Comments BASIC METABOLIC PANEL Routine 10/01/2024 11:40 AM CDT Low sodium levels PROTIME-INR Routine 09/23/2024 2:41 PM CDT CBC [...] Recently Relevant to Health Maintenance Results * (ABNORMAL) BASIC METABOLIC PANEL (10/01/2024 11:40 AM CDT) GLUCOSE 96 65 - 99 mg/dL [facility] Comment: Fasting reference interval BUN 12 7 - 25 mg/dL [facility] CREATININE 0.80 0.60 - 1.00 mg/dL [facility] GFR 78 > OR = 60 mL/min/1.7 3m2 [facility] BUN/CREAT RATIO SEE NOTE: 6 - 22 (calc) [facility] Comment: Not Reported: BUN and Creatinine are within reference range. SODIUM 134(L) 135 - 146 mmol/L [facility] POTASSIUM 4.9 3.5 - 5.3 mmol/L [facility] CHLORIDE 99 98 - 110 mmol/L [facility] CO2 29 20 - 32 mmol/L [facility] CALCIUM 9.5 8.6 - 10.4 mg/dL [facility] Comment: Test Performed at: [facility] [address] [place] [address] Gucci Tipton MD Blood 10/01/2024 11:4 0 AM CDT 10/01/2024 11:40 AM CDT Sanket Qureshi MD CHEMISTRY ORDERABLES Final Res ult Performing Organization Address City/State/ZIP [facility] Phone Number [facility] [phone] [facility] [address] [place] [address] * PROTIME-INR (09/23/2024 2:41 PM CDT) INR 1.0 [facility] Comment: Reference Range 0.9-1.1 Moderate-intensity Warfarin Therapy 2.0-3.0 Higher-intensity Warfarin Therapy 3.0-4.0 PROTIME 11.1 9.0 - 11.5 sec [facility] Comment: For additional information, please refer to http://education.MetaLogics/faq/MQQ795 (This link is being provided for informational/ educational purposes only.) Test Performed at: [facility] [address] [place] [address] Gucci Tipton 09/23/2024 2:41 PM CDT 09/23/2024 2:41 PM CDT Sanket Qureshi MD HEMATOLOGY ORDERABLES Final Re sult Performing Organization Address City/[facility]/ZIP [facility] Phone Number [facility] [phone] [facility] [employer] [facility] [address] [place] [address] * CBC WITHOUT DIFFERENTIAL (09/23/2024 2:41 PM [...] [facility] Comment: Test Performed at: [facility] [address] [place] [address] Gucci Tipton MD Blood 09/23/2024 2:41 PM CDT 09/23/2024 2:41 PM CDT us Sanket Qureshi MD HEMATOLOGY ORDERABLES Final Re sult [facility] [phone] [facility] [address] [place] [address] * (ABNORMAL) COMPREHENSIVE METABOLIC PANEL (09/23/2024 2:41 PM CDT) GLUCOSE 95 65 - 99 mg/dL [facility] Comment: Fasting reference interval BUN 12 [...] [facility] Comment: Test Performed at: [facility] [address] [place] [address] Gucci Tipton MD Blood 09/23/2024 2:41 PM CDT 09/23/2024 2:41 PM CDT Sanket Qureshi MD CHEMISTRY ORDERABLES Final Res ult [facility] [phone] [facility] [address] [place] [address] * EKG 12-LEAD (09/23/2024) Sanket Qureshi MD ECG ORDERABLES Final Result [facility] CLIA# [id number] [address] [place] [address] * ENDOSCOPY, COLON, SCREENING (04/08/2014) Abstract Provider GI PROCEDURE ORDERABLES Edited Result - Final [facility] CLIA# [id number] [address] [place] [address] from Last 3 Months or Most Recently Relevant to Health Maintenance Insurance [facility] MCR Care Teams Manager Of Exhibitions And Collections Relationship Specialty Start Date End Date Sanket Qureshi MD PCP - General Family Practice 06/18/18
--- NOTE | 2024-10-05 06:55 | WPDHPUPDATE1 ---
History and Physical Update Update Date/Time: 10/05/24 06:55 History and Physical has been reviewed, including an updated exam of the patient. There are NO changes in the patient's condition. Risks, benefits, and alternatives have been discussed and questions answered. Patient agrees to proceed with procedure.
[2024-10-05] MEDS: LACTATED RINGERS 1,000 ML 30 ML IV CONT ×2 (09:00→12:04)
[2024-10-05] MEDS: VANCOMYCIN 1,250 MG/NS 250 ML 1,250 MG/250 ML BAG 166.67 MG IVPB (09:10)
[2024-10-05] MEDS: TRANEXAMIC ACID 1,000MG/ISO100 1,000 MG/100 ML BAG 200 MG IVPB (09:11)
[2024-10-05] MEDS: ACETAMINOPHEN 500 MG TABLET 1000 MG PO (09:11)
[2024-10-05 09:27] LABS: Sodium 135 mmol/L (137-145)
--- NOTE | 2024-10-05 10:00 | P.PNAN_ITS ---
Anes - Initial Pre Proc Eval Procedure: Operation Date: 10/05/24 10:00 Proposed Procedures p Right Total Knee Arthroplasty - Red Lange MD Date/Time: 10/05/24 10:00 Surgeon: Red Lange MD Pre Op Diagnosis: O A Rt Knee Patient Data Age: 74 Gender: F Height: 1.75 m Weight: 78 kg Last Vital Signs Temp 97.4 F L 09/25/24 11:08 Pulse 99 09/25/24 11:08 Resp 16 09/25/24 11:08 BP 124/74 09/25/24 11:08 Pulse Ox 97 09/25/24 11:08 O2 Del Method Room Air 09/25/24 11:08 Allergies Allergy/AdvReac Type Severity Reaction Status Date / Time No Known Allergies Allergy Unknown Verified 09/25/24 11:02 Home Medications ?Medication ?Instructions ?Recorded ?Confirmed ?Type fluoxetine 20 mg capsule 20 mg PO DAILY 07/28/22 09/25/24 History atorvastatin 20 mg tablet 20 mg PO DAILY 03/18/23 09/25/24 History cetirizine 10 mg capsule (All Day 10 mg PO DAILY PRN allergy symptoms 03/18/23 09/25/24 History Allergy (cetirizine)) multivitamin 1 tablet PO DAILY 03/18/23 09/25/24 History B complex 11-folic acid 1 mg-C 100 1 tablet PO DAILY 09/25/24 09/25/24 History mg-biotin 300 mcg-zinc 50 mg tablet atomoxetine 10 mg capsule 10 mg PO DAILY 09/25/24 09/25/24 History naproxen sodium 220 mg capsule 440 mg PO Q12H PRN pain 09/25/24 09/25/24 History (Aleve) Laboratory Tests 10/05/24 08:42 Sodium 135 L mmol/L (137-145) Patient hx anesthesia problems: none Family hx anesthesia problems: none Results Review: All pre-operative results and documents have been reviewed as part of the pre- operative evaluation. [facility] Past Medical History Medical History Depression ADHD Hyperlipidemia Surgical History Surgical History History of lumpectomy of left breast History of hernia repair Family History Family History Father Pancreatic cancer Mother Heart disease Social History Social History Smoking status: Never smoker Alcohol intake: current Substance use: never Substance use type: does not use Do You Feel Safe in your Home?: Yes Lack of Transportation: No Lack of Food: Never True Current Housing: I Have Housing Concerned About Future Housing: No Difficulty Paying Gas/Electric Bills: No Difficulty Paying for Meds: No Currently Unemployed: No Education: Bachelor's Degree Difficulty w/ Childcare or Family Care: No Living arrangements: alone Occupation/Education: retired Anes - Eval Final PreProcedure Day of Procedure 10/05/24 10:00 Patient weight: normal Lungs: normal air movement Airway: Mallampati scale class II Neurological: alert and oriented Last oral intake: >/= 8 hours ASA classification: II Emergent: no Anesthetic plan: proceed Anesthesia type and monitoring: general ETT and standard monitoring Results Review: All pre-operative results and documents have been reviewed as part of the pre- operative evaluation. Hyperlipidemia, EKG w NSR. Informed Consent: The patient's anesthetic plan and its attendant risks and benefits were discussed with the patient/family/POA. Questions were solicited and answers provided to the satisfaction of the patient/family/POA.
[2024-10-05] MEDS: ceFAZolin 2 GM/D5W 50 ML 2 GM/50 ML BAG IVPB ×2 (10:25→17:21)
--- NOTE | 2024-10-05 10:41 | WPDANESPNB ---
Anes - Peripheral Nerve Block Date/Time: 10/05/24 10:41 I have discussed with the patient/family/POA the placement of a peripheral nerve block for post-operative pain management, including associated risks, benefits, complications, and side effects. Alternative methods of post-operative analgesia were detailed. Questions were solicited and answers provided to the satisfaction of the patient/family/POA. Time-Out: A pre-procedural Time-Out was completed immediately before starting the procedure and confirmed: Patient Identification, Site, Procedure, Patient Position and the Availability of Requisite Equipment. Clinical Indications: Acute post-operative pain management requested by the operative surgeon. Nerve Block Insertion Note Anes-nerve block: adductor canal right Patient position: supine Skin prep: chlorhexidine Needle: 22 gauge, stimulating, insulated echogenic needle. Needle length: 80 mm Technique: ultrasound Injectate: other (Bupiv 0.5% 15 mls. ) Observations: tolerated well Complications: none Procedure start time:: 1000 Procedure end time:: 1006
[2024-10-05] MEDS: SODIUM CHLORIDE 0.9% IV 37.7 ML, MORPHINE SULFATE INJ (*CRX) 2 MG, ROPivacaine HCL 1% 2... INFILTRATE (10:43)
--- NOTE | 2024-10-05 11:33 | P.OP_ITS ---
Procedure Note - Detailed Date of Procedure 10/05/24 Pre-op Diagnosis Osteoarthritis RIGHT Knee Post-op Diagnosis Same Procedure Performed RIGHT Total Knee Replacement Surgeon Red Lange MD Provider Scribe Danny Anesthesia General Indications Arthritis, Deformity and Pain Description of Procedure The patient was brought to operating room #8. A general anesthetic was administered. Placed on the operating table and sterilely prepped and draped in usual manner. A longitudinal incision was made. Tourniquet inflated to 300 mmHg for a total of 39 minutes. Dissection was carried down to the fascia. Medial parapatellar incision was made and the patella subluxated laterally. Patella cut from 25 to 15 mm. The tibia was cut perpendicular to the long axis and femur cut in 5 degrees of valgus. The components were trialed and the knee was noted to be stable with excellent motion. The soft tissues balanced, hemostasis obtained. All [address], 67 tibia, 65 femur, 34 mm patella, and 16 mm poly. Motion was 0-125 degrees with good stability in both flexion and extension. The wound was closed with #2 Vicryl, 2-0 Vicryl and [place] Estimated Blood Loss 200 Drains No Packing No Pathology None sent Complications No immediate complications Condition Stable Disposition PACU [facility] Billing Surgery - Charge Forward: Surgery Billing ([id number] TKA)
[2024-10-05] MEDS: ceFAZolin SODIUM 1 GM VIAL 2 GM IV PUSH (11:38)
[2024-10-05] MEDS: TRANEXAMIC ACID 1,000 MG/10 ML AMPUL 1000 MG IV PUSH (11:40)
[2024-10-05] MEDS: fentaNYL CITRATE INJ (*CRX) 100 MCG/2 ML VIAL 25 MCG IV PUSH ×4 (12:19→13:10)
--- NOTE | 2024-10-05 14:52 | PM.IMCN ---
Assessment and Plan Assessment and plan (1) Osteoarthritis of right knee: Code(s): M17.11 - Unilateral primary osteoarthritis, right knee Status: Acute Assessment and Plan: Status post total knee replacement on 10/05/24 Pain management by Ortho Postop antibiotics Xarelto (2) Hyperlipidemia: Code(s): E78.5 - Hyperlipidemia, unspecified Status: Acute Assessment and Plan: Continue Lipitor (3) Depression: Code(s): F32.A - Depression, unspecified Status: Acute Assessment and Plan: Continue Prozac HPI Date of Consult Consult date: 10/05/24 Requesting Physician: Red Lange MD Primary Care Provider: Sanket Qureshi Consult Narrative Reason for consult: Medical management Narrative: Ophelia Brice is a 74 year old female with past medical history of ADHD, hyperlipidemia, depression and osteo arthritis of right knee presents the hospital for total right knee replacement. Patient states that her pain is well controlled on the current medications. And has no complaints post operation. Hospitalist team was consulted for medical management. Review of Systems Review of Systems: 12 systems were reviewed and are negative except for as per HPI. [facility] Past Medical History Medical History (Updated 10/05/24 @ 14:56 by Haily Barrera, [employer]) Depression ADHD Hyperlipidemia Surgical History Surgical History History of lumpectomy of left breast History of hernia repair Family History Family History Father Pancreatic cancer Mother Heart disease Social History Social History Smoking status: Never smoker Alcohol intake: current Alcohol use details: 1 per month Substance use: never Substance use type: does not use Do You Feel Safe in your Home?: Yes Lack of Transportation: No Lack of Food: Never True Current Housing: I Have Housing Concerned About Future Housing: No Difficulty Paying Gas/Electric Bills: No Difficulty Paying for Meds: No Currently Unemployed: No Education: Bachelor's Degree Difficulty w/ Childcare or Family Care: No Living arrangements: alone Occupation/Education: retired Spiritual care concerns: No Meds Home Medications and Allergies Home Medications ?Medication ?Instructions ?Recorded ?Confirmed ?Type fluoxetine 20 mg capsule 20 mg PO DAILY 07/28/22 10/05/24 History atorvastatin 20 mg tablet 20 mg PO DAILY 03/18/23 10/05/24 History cetirizine 10 mg capsule (All Day 10 mg PO DAILY PRN allergy symptoms 03/18/23 09/25/24 History Allergy (cetirizine)) multivitamin 1 tablet PO DAILY 03/18/23 10/05/24 History B complex 11-folic acid 1 mg-C 100 1 tablet PO DAILY 09/25/24 10/05/24 History mg-biotin 300 mcg-zinc 50 mg tablet atomoxetine 10 mg capsule 10 mg PO DAILY 09/25/24 10/05/24 History naproxen sodium 220 mg capsule 440 mg PO Q12H PRN pain 09/25/24 10/05/24 History (Aleve) Allergies Allergy/AdvReac Type Severity Reaction Status Date / Time No Known Allergies Allergy Unknown Verified 10/05/24 10:10 Vital Signs Vital Signs - 24 hr 10/05/24 12:04 10/05/24 12:15 10/05/24 12:30 Temperature 98.1 F Pulse Rate 71 83 69 Respiratory Rate 15 20 Blood Pressure 124/69 128/75 122/75 Pulse Oximetry 99 95 97 Oxygen Delivery Simple Face Mask Room Air Room Air Oxygen Flow Rate 8 10/05/24 12:45 10/05/24 13:00 10/05/24 13:15 Temperature Pulse Rate 69 71 71 Respiratory Rate 12 12 14 Blood Pressure 128/77 120/74 120/74 Pulse Oximetry 94 93 93 Oxygen Delivery Room Air Room Air Room Air Oxygen Flow Rate 10/05/24 13:30 10/05/24 13:45 10/05/24 14:00 Temperature Pulse Rate 75 74 76 Respiratory Rate 13 12 16 Blood Pressure 115/78 132/78 126/71 Pulse Oximetry 95 71 L 96 Oxygen Delivery Room Air Room Air Room Air Oxygen Flow Rate Exam Narrative: General: well appearing, appears stated age. HEENT: normocephalic, atraumatic. Mucous membranes moist. EOMI, PERRLA, bilateral sclera anicteric, no conjunctival injection. Neck supple without JVD, lymphadenopathy, or bruit. Respiratory: clear to ascultation bilaterally. No rales/rhonic/wheezes. Cardiovascular: Regular rate and rhythm, normal S1-S2 upon ascultation. No murmurs, rubs, or clicks. PMI is nondisplaced, capillary refill less than 3 second. Abdomen: Soft, round, no pulsatile masses, nondistended and nontender. No rebound, no guarding. No CVA tenderness, no hepatosplenomegaly. Bowel sounds present to all four quadrants. No high pitch or tinkling sounds, resonant to percussion. Extremities: No cyanosis, clubbing, or edema present. Pulses are palpable 2/2. Right lower extremity was surgical dressing clean dry intact Neuro: Alert and orientated x 4. PERRLA. Cranial nerves 2-12 intact without focal deficit. Skin: Warm, dry, and intact, without rash, erythema, or lesion. Psych: pleasant, cooperative, normal speech, normal affect, no hallucinations, no dysarthia Results Labs 10/05/24 08:42 Labs: BMP 10/05/24 08:42 Sodium 135 L Quality VTE Prophylaxis VTE prophylaxis: mechanical ordered and pharmacologic ordered Hospitalist [facility] Advance Care Plan I have confirmed that the patient's Advanced Care Plan is present, code status is documented, or surrogate decision maker is listed in patient medical record.: Yes Medication Reconciliation I have utilized all available resources to obtain, update and review the patients current medications (includes all prescriptions, OTC, herbals, cannabis, and nutritional supplements).: Yes
[2024-10-05] MEDS: ATORVASTATIN 20 MG TABLET PO (15:24)
[2024-10-05] MEDS: HYDROcodone/acetaminophen (*CRX) 7.5-325 MG TABLET 1 TAB PO ×2 (15:24→21:15)
[2024-10-05] MEDS: SODIUM CHLORIDE 0.9% IV 1,000 ML 125 ML IV CONT (15:25)
[2024-10-05] MEDS: FLUoxetine HCL 20 MG CAPSULE PO (15:25)
[2024-10-05] MEDS: CELECOXIB 200 MG CAPSULE PO (17:21)
[2024-10-05] MEDS: SENNA/DOCUSATE SODIUM TABLET 2 TAB PO (17:21)
[2024-10-05] MEDS: RIVAROXABAN 10 MG TABLET PO (17:21)
[2024-10-05] MEDS: ONDANSETRON INJ 4 MG/2 ML VIAL IV PUSH (21:15)
[2024-10-06] MEDS: HYDROcodone/acetaminophen (*CRX) 7.5-325 MG TABLET 1 TAB PO ×3 (02:16→15:11)
[2024-10-06] MEDS: ceFAZolin 2 GM/D5W 50 ML 2 GM/50 ML BAG IVPB ×2 (02:16→09:10)
[2024-10-06 03:38] VITALS: BP 103/54; PULSE 79; RESP 14; TEMP 36.1; O2SAT 97
[2024-10-06 05:59] LABS: Basophils Percent Auto 0.2 % (0.2-1.2); Eosinophils Percent Auto 0.2 % (0-4.4); Hemoglobin 10.4 g/dL (12.0-15.0); Immature Granulocyte Absolute 0.03 K/mm3 (0.00-0.031); Immature Granulocyte Percent A 0.4 % (0-0.5); Lymphocytes Absolute Auto 1.36 K/mm3 (0.9-3.2); Mean Corpuscular HGB Conc 32.5 g/dl (32-36); Mean Corpuscular Hemoglobin 30.1 pg (26-34); Mean Corpuscular Volume 92.8 fl (80-100); Mean Platelet Volume 8.6 fl (7.4-10.4); Monocytes Percent Auto 12.2 % (2.6-8.5); Neutrophils Absolute Auto 6.1 K/mm3 (1.3-6.7); Platelet Count Result 283 k/mm3 (150-375); Red Blood Count 3.45 M/mm3 (4.2-5.4); Red Cell Distribution Width 13.1 % (11.5-14.5); White Blood Count 8.5 K/mm3 (4.5-10.0)
[2024-10-06 06:14] LABS: Anion Gap 6 mmol/L (4-12); Blood Urea Nitrogen 12 mg/dL (7-17); Calcium 8.5 mg/dL (8.4-10.2); Carbon Dioxide 27 mmol/L (22-30); Chloride 100 mmol/L (98-107); Estimated CRCL calculation 57 ml/min; Estimated Glomerular Filt Rate > 60; Glucose 112 mg/dL (65-110); Potassium 3.9 mmol/L (3.4-5.0); Sodium 133 mmol/L (137-145)
--- NOTE | 2024-10-06 07:19 | P.PNOP_ITS ---
Progress Note: A&P Assessment and Plan (1) History of knee replacement procedure of right knee: Code(s): Z96.651 - Presence of right artificial knee joint Status: Acute Assessment and Plan: Patient underwent total knee arthroplasty right. She is doing well postoperatively she can be dismissed today. Follow up 10 to 14 days for sutures out. If she has any changes or problems she will call discussed. Subjective Subjective Date/Time Seen: 10/06/24 07:19 Post Op day: 1 Principal diagnosis: RIGHT Total Knee Review of Systems Review of Systems: 12 systems were reviewed and are negativ e except for as per HPI. Exam Narrative: Patient can wiggle her toes. Her dressing is intact. Is able walk with a walker. Neurologically she appears to be intact. Objective Data Vital Signs Vital Signs: Vital Signs - 24 hr 10/05/24 12:04 10/05/24 12:15 10/05/24 12:30 Temperature 98.1 F Pulse Rate 71 83 69 Respiratory Rate 15 20 Blood Pressure 124/69 128/75 122/75 Pulse Oximetry 99 95 97 Oxygen Delivery Simple Face Mask Room Air Room Air Oxygen Flow Rate 8 10/05/24 12:45 10/05/24 13:00 10/05/24 13:15 Temperature Pulse Rate 69 71 71 Respiratory Rate 12 12 14 Blood Pressure 128/77 120/74 120/74 Pulse Oximetry 94 93 93 Oxygen Delivery Room Air Room Air Room Air Oxygen Flow Rate 10/05/24 13:30 10/05/24 13:45 10/05/24 14:00 Temperature Pulse Rate 75 74 76 Respiratory Rate 13 12 16 Blood Pressure 115/78 132/78 126/71 Pulse Oximetry 95 71 L 96 Oxygen Delivery Room Air Room Air Room Air Oxygen Flow Rate 10/05/24 14:37 10/05/24 14:52 10/05/24 15:15 Temperature 97.3 F L 97.4 F L Pulse Rate 75 72 Respiratory Rate 16 16 Blood Pressure 126/74 132/74 Pulse Oximetry 98 99 Oxygen Delivery Room Air Oxygen Flow Rate 10/05/24 15:23 10/05/24 16:05 10/05/24 16:23 Temperature 97.6 F 98.3 F Pulse Rate 81 70 Respiratory Rate 16 14 Blood Pressure 142/88 H 118/83 Pulse Oximetry 99 98 Oxygen Delivery Room Air Oxygen Flow Rate 10/05/24 16:46 10/05/24 18:56 10/05/24 23:18 Temperature 97.1 F L Pulse Rate 68 Respiratory Rate 14 Blood Pressure 123/70 Pulse Oximetry 93 99 Oxygen Delivery Room Air Room Air Oxygen Flow Rate 10/06/24 03:38 Temperature 97.0 F L Pulse Rate 79 Respiratory Rate 14 Blood Pressure 103/54 L Pulse Oximetry 97 Oxygen Delivery Oxygen Flow Rate Intake/Output Intake/Output: Intake & Output 10/03/24 10/04/24 10/05/24 10/06/24 23:59 23:59 23:59 23:59 Intake Total 1600 Balance 1600 Meds/Results Medications: Active Medications Generic Name Dose Route Start Last Admin Trade Name Freq PRN Reason Stop Dose Admin Hydrocodone Bitart/Acetaminophen 1 tab 10/05/24 14:06 Hydrocodone/Acetaminophen (*Crx) 5-325 Mg Tablet PO Q4H PRN Pain Rated 4-6 Hydrocodone Bitart/Acetaminophen 1 tab 10/05/24 14:06 10/06/24 02:16 Hydrocodone/Acetaminophen (*Crx) 7.5-325 Mg Tablet PO 1 tab Q4H PRN Administration Pain Rated 7-10 Atorvastatin Calcium 20 mg 10/05/24 15:05 10/05/24 15:24 Atorvastatin 20 Mg Tablet PO 20 mg DAILY PETRA Administration Celecoxib 200 mg 10/05/24 17:00 10/05/24 17:21 Celecoxib 200 Mg Capsule PO 200 mg BIDWM PETRA Administration Diphenhydramine HCl 25 mg 10/05/24 14:06 Diphenhydramine Hcl Inj 50 Mg/Ml Vial IV PUSH Q6H PRN Itching Fluoxetine HCl 20 mg 10/05/24 15:05 10/05/24 15:25 Fluoxetine Hcl 20 Mg Capsule PO 20 mg DAILY PETRA Administration Hydromorphone HCl 1 mg 10/05/24 14:14 Hydromorphone Hcl Inj (*Crx) 2 Mg/Ml Vial IV PUSH Q2H PRN Breakthrough Pain Rated 7-10 or NPO Hydromorphone HCl 0.5 mg 10/05/24 14:16 Hydromorphone Hcl Inj (*Crx) 2 Mg/Ml Vial IV PUSH Q2H PRN Breakthrough Pain Rated 4-6 or NPO Cefazolin Sodium 2 gm in 50 mls @ 100 mls/hr 10/05/24 18:00 10/06/24 02:16 Ancef 2 Gm/D5w 50 Ml IVPB 10/06/24 10:29 100 mls/hr Q8H PETRA Administration Ibuprofen 800 mg in 200 mls @ 400 mls/hr 10/05/24 14:06 Caldolor 800 Mg/200 Ml IVPB Q6H PRN Breakthrough Pain Rated 1-3 or NPO Naloxone HCl 0.1 mg 10/05/24 14:06 Naloxone Hcl 0.4 Mg/Ml Vial IV PUSH Q2M PRN Opiate Reversal Ondansetron HCl 4 mg 10/05/24 14:06 10/05/24 21:15 Ondansetron Inj 4 Mg/2 Ml Vial IV PUSH 4 mg Q4H PRN Administration Nausea And Vomiting Polyethylene Glycol 17 gm 10/06/24 09:00 Polyethylene Glycol 3350 17 Gm Powd.Pack PO QAM PETRA Rivaroxaban 10 mg 10/05/24 17:00 10/05/24 17:21 Rivaroxaban 10 Mg Tablet PO 10/16/24 17:01 10 mg DAILY@17 PETRA Administration Senna/Docusate Sodium 2 tab 10/05/24 17:00 10/05/24 17:21 Senna/Docusate Sodium Tablet PO 2 tab BID PETRA Administration Tramadol HCl 50 mg 10/05/24 14:06 Tramadol Hcl (*Crx) 50 Mg Tablet PO Q4H PRN Pain Rated 1-3 Radiology Results: ITS Impressions Knee X-Ray 10/05/24 12:43 IMPRESSION: No acute osseous abnormality right knee. Total knee arthroplasty. Postoperative changes in the subcutaneous tissues. Labs Labs: Laboratory Results - last 24 hr 10/05/24 10/06/24 08:42 05:32 WBC 8.5 RBC 3.45 L Hgb 10.4 L Hct 32.0 L MCV 92.8 MCH 30.1 MCHC 32.5 RDW 13.1 Plt Count 283 MPV 8.6 Immature Gran % (Auto) 0.4 Neut % (Auto) 71.0 Lymph % (Auto) 16.0 L [place] % (Auto) 12.2 H Eos % (Auto) 0.2 Baso % (Auto) 0.2 Lymph # (Auto) 1.36 [place] # (Auto) 1.0 H Eos # (Auto) 0.0 Baso # (Auto) 0.0 Abs Immat Gran (auto) 0.03 Absolute Neuts (auto) 6.1 Absolute Nucleated RBC 0.000 Nucleated RBC % 0.0 Sodium 135 L 133 L Potassium 3.9 Chloride 100 Carbon Dioxide 27 Anion Gap 6 BUN 12 Creatinine 0.80 Estim Creat Clear Calc 57 Estimated GFR > 60 Glucose 112 H Calcium 8.5
[2024-10-06 07:45] VITALS: BP 105/63; PULSE 76; RESP 18; TEMP 35.8; O2SAT 99
--- NOTE | 2024-10-06 08:00 | WPDANESPN ---
Anes - Prog Note Post-Op Date/Time: 10/06/24 08:00 Cardiovascular status: normal Respiratory status: normal Airway patency: baseline Mental status: baseline Vital Signs: Last Vital Signs Temp 35.8 C L 10/06/24 07:45 Pulse 76 10/06/24 07:45 Resp 18 10/06/24 07:45 BP 105/63 10/06/24 07:45 Pulse Ox 99 10/06/24 07:45 O2 Del Method Room Air 10/05/24 18:56 O2 Flow Rate 8 10/05/24 12:04 Pain Score (VAS): 3 I/O: Intake & Output 10/05/24 10/06/24 10/06/24 23:59 07:59 15:59 Intake Total 1150 Balance 1150 Laboratory Tests 10/06/24 05:32 10/06/24 05:32 10/05/24 10/06/24 08:42 05:32 WBC 8.5 RBC 3.45 L Hgb 10.4 L Hct 32.0 L MCV 92.8 MCH 30.1 MCHC 32.5 RDW 13.1 Plt Count 283 MPV 8.6 Immature Gran % (Auto) 0.4 Neut % (Auto) 71.0 Lymph % (Auto) 16.0 L [place] % (Auto) 12.2 H Eos % (Auto) 0.2 Baso % (Auto) 0.2 Lymph # (Auto) 1.36 [place] # (Auto) 1.0 H Eos # (Auto) 0.0 Baso # (Auto) 0.0 Abs Immat Gran (auto) 0.03 Absolute Neuts (auto) 6.1 Absolute Nucleated RBC 0.000 Nucleated RBC % 0.0 Sodium 135 L 133 L Potassium 3.9 Chloride 100 Carbon Dioxide 27 Anion Gap 6 BUN 12 Creatinine 0.80 Estim Creat Clear Calc 57 Estimated GFR > 60 Glucose 112 H Calcium 8.5 Patient Feedback: Patient satisfied with anesthetic care.
[2024-10-06] MEDS: CELECOXIB 200 MG CAPSULE PO (09:09)
[2024-10-06] MEDS: SENNA/DOCUSATE SODIUM TABLET 2 TAB PO (09:09)
[2024-10-06] MEDS: polyethylene glycoL 3350 17 GM POWD.PACK PO (09:10)
[2024-10-06 11:51] VITALS: BP 128/60; PULSE 81; RESP 18; TEMP 36.6; O2SAT 100
--- NOTE | 2024-10-06 12:07 | PM.IMCN ---
Assessment and Plan Assessment and plan (1) Osteoarthritis of right knee: Code(s): M17.11 - Unilateral primary osteoarthritis, right knee Status: Acute Assessment and Plan: Status post total knee replacement on 10/05/24 Pain management by Ortho Postop antibiotics Xarelto (2) Hyperlipidemia: Code(s): E78.5 - Hyperlipidemia, unspecified Status: Acute Assessment and Plan: Continue Lipitor (3) Depression: Code(s): F32.A - Depression, unspecified Status: Acute Assessment and Plan: Continue Prozac HPI Date of Consult Consult date: 10/06/24 Requesting Physician: Keith Zarco PADavid Primary Care Provider: Sanket Qureshi Consult Narrative Narrative: Ophelia Brice is a 74 year old female with past medical history of ADHD, hyperlipidemia, depression and osteo arthritis of right knee presents the hospital for total right knee replacement. Patient continues to report that her pain has improved. Orthopedics has cleared her for discharge, however patient and her family are concerned about being discharged while unable to fully ambulate on her own. Care coordination working discharge on home health. No other concerns at this time. Review of Systems Review of Systems: 12 systems were reviewed and are negative except for as per HPI. PMFSH Past Medical History Medical History (Updated 10/05/24 @ 14:56 by Haily Barrera APRN) Depression ADHD Hyperlipidemia Surgical History Surgical History (Updated 10/06/24 @ 07:20 by Red Lange MD) History of lumpectomy of left breast History of hernia repair Family History Family History Father Pancreatic cancer Mother Heart disease Social History Social History Smoking status: Never smoker Alcohol intake: current Alcohol use details: 1 per month Substance use: never Substance use type: does not use Do You Feel Safe in your Home?: Yes Lack of Transportation: No Lack of Food: Never True Current Housing: I Have Housing Concerned About Future Housing: No Difficulty Paying Gas/Electric Bills: No Difficulty Paying for Meds: No Currently Unemployed: No Education: Bachelor's Degree Difficulty w/ Childcare or Family Care: No Living arrangements: alone Occupation/Education: retired Spiritual care concerns: No Meds Home Medications and Allergies Home Medications ?Medication ?Instructions ?Recorded ?Confirmed ?Type fluoxetine 20 mg capsule 20 mg PO DAILY 07/28/22 10/05/24 History atorvastatin 20 mg tablet 20 mg PO DAILY 03/18/23 10/05/24 History cetirizine 10 mg capsule (All Day 10 mg PO DAILY PRN allergy symptoms 03/18/23 09/25/24 History Allergy (cetirizine)) multivitamin 1 tablet PO DAILY 03/18/23 10/05/24 History B complex 11-folic acid 1 mg-C 100 1 tablet PO DAILY 09/25/24 10/05/24 History mg-biotin 300 mcg-zinc 50 mg tablet atomoxetine 10 mg capsule 10 mg PO DAILY 09/25/24 10/05/24 History naproxen sodium 220 mg capsule 440 mg PO Q12H PRN pain 09/25/24 10/05/24 History (Aleve) doxycycline hyclate 100 mg tablet 100 mg PO DAILY #10 tabs 10/06/24 Rx hydrocodone 7.5 mg-acetaminophen 1 tablet PO Q4H PRN pain #40 tabs 10/06/24 Rx 325 mg tablet rivaroxaban 10 mg tablet (Xarelto) 10 mg PO DAILY #10 tabs 10/06/24 Rx Allergies Allergy/AdvReac Type Severity Reaction Status Date / Time No Known Allergies Allergy Unknown Verified 10/05/24 10:10 Vital Signs Vital Signs - 24 hr 10/05/24 12:15 10/05/24 12:30 10/05/24 12:45 Temperature Pulse Rate 83 69 69 Respiratory Rate 20 12 Blood Pressure 128/75 122/75 128/77 Pulse Oximetry 95 97 94 Oxygen Delivery Room Air Room Air Room Air 10/05/24 13:00 10/05/24 13:15 10/05/24 13:30 Temperature Pulse Rate 71 71 75 Respiratory Rate 12 14 13 Blood Pressure 120/74 120/74 115/78 Pulse Oximetry 93 93 95 Oxygen Delivery Room Air Room Air Room Air 10/05/24 13:45 10/05/24 14:00 10/05/24 14:37 Temperature 97.3 F L Pulse Rate 74 76 75 Respiratory Rate 12 16 16 Blood Pressure 132/78 126/71 126/74 Pulse Oximetry 71 L 96 98 Oxygen Delivery Room Air Room Air 10/05/24 14:52 10/05/24 15:15 10/05/24 15:23 Temperature 97.4 F L 97.6 F Pulse Rate 72 81 Respiratory Rate 16 16 Blood Pressure 132/74 142/88 H Pulse Oximetry 99 99 Oxygen Delivery Room Air 10/05/24 16:05 10/05/24 16:23 10/05/24 16:46 Temperature 98.3 F Pulse Rate 70 Respiratory Rate 14 Blood Pressure 118/83 Pulse Oximetry 98 93 Oxygen Delivery Room Air Room Air 10/05/24 18:56 10/05/24 23:18 10/06/24 03:38 Temperature 97.1 F L 97.0 F L Pulse Rate 68 79 Respiratory Rate 14 14 Blood Pressure 123/70 103/54 L Pulse Oximetry 99 97 Oxygen Delivery Room Air 10/06/24 07:45 Temperature 96.5 F L Pulse Rate 76 Respiratory Rate 18 Blood Pressure 105/63 Pulse Oximetry 99 Oxygen Delivery Exam Narrative: General: well appearing, appears stated age. HEENT: normocephalic, atraumatic. Mucous membranes moist. EOMI, PERRLA, bilateral sclera anicteric, no conjunctival injection. Neck supple without JVD, lymphadenopathy, or bruit. Respiratory: clear to ascultation bilaterally. No rales/rhonic/wheezes. Cardiovascular: Regular rate and rhythm, normal S1-S2 upon ascultation. No murmurs, rubs, or clicks. PMI is nondisplaced, capillary refill less than 3 second. Abdomen: Soft, round, no pulsatile masses, nondistended and nontender. No rebound, no guarding. No CVA tenderness, no hepatosplenomegaly. Bowel sounds present to all four quadrants. No high pitch or tinkling sounds, resonant to percussion. Extremities: No cyanosis, clubbing, or edema present. Pulses are palpable 2/2. Right lower extremity was surgical dressing clean dry intact Neuro: Alert and orientated x 4. PERRLA. Cranial nerves 2-12 intact without focal deficit. Skin: Warm, dry, and intact, without rash, erythema, or lesion. Psych: pleasant, cooperative, normal speech, normal affect, no hallucinations, no dysarthia Results Labs 10/06/24 05:32 10/06/24 05:32 Labs: Short CBC 10/06/24 Range/Units 05:32 WBC 8.5 (4.5-10.0) K/mm3 Hgb 10.4 L (12.0-15.0) g/dL Hct 32.0 L (37.0-47.0) % Plt Count 283 (150-375) k/mm3 [facility] 10/06/24 05:32 Sodium 133 L Potassium 3.9 Chloride 100 Carbon Dioxide 27 BUN 12 Creatinine 0.80 Glucose 112 H Calcium 8.5 Quality VTE Prophylaxis VTE prophylaxis: mechanical ordered and pharmacologic ordered
[2024-10-06] MEDS: ATORVASTATIN 20 MG TABLET PO (15:12)
[2024-10-06] MEDS: FLUoxetine HCL 20 MG CAPSULE PO (15:14)
--- NOTE | 2024-10-06 15:41 | PC.NURSE ---
Pt and pt family questioning discharge to home. Explained that pt functioning well with standby assistance only. Family concerned that they will not know how they will provide care or get her to PT and OT or if it is even ordered. Called [facility] to inquire about PT/OT. He said that pt should call the office tomorrow to find out if/when therapy is ordered.
== END 2024-10-06 15:30 | disposition home or self-care (01) ==
LOC: ANHSURGERY 08:03 → ANH3MEDSUR 14:12
PROVIDERS: Anesthesiology; Orthopaedic Surgery; Visit Provider Physician Assistant
PROC: (CPT 27447; principal; 2024-10-05 10:00)
DX: M17.11 Unilateral primary osteoarthritis, right knee (principal); G89.18 Other acute postprocedural pain; E78.5 Hyperlipidemia, unspecified; F32.A Depression, unspecified; F90.9 Attention-deficit hyperactivity disorder, unspecified type; Z79.1 Long term (current) use of non-steroidal anti-inflammatories (NSAID); Z98.890 Other specified postprocedural states; Z80.0 Family history of malignant neoplasm of digestive organs; Z82.49 Family history of ischemic heart disease and other diseases of the circulatory system
CPT/HCPCS: 64447; 27447; 36415; 73560; 80048; 84295; 85025; 97110; 97116; 97165; 97530; 97535; A9270; C1713; C1776; J0171; J0690; J1100; J1885; J2003; J2250; J2270; J2405; J2704; J2795; J3010; J3370; J7030; J7120

== ENCOUNTER 2024-11-16 10:15 | Outpatient (RCR) | payer OTHER, SELFPAY ==
--- NOTE | 2024-10-14 13:59 | PTOPEVAL1 ---
Assessment and note entered by Bandar Kaur Evaluation Information Assessment Status Evaluation ICD-10 Condition Codes (PT) Pain in right knee M25.561,Aftercare following joint replacement surgery Z47.1 Onset 10/05/24 Subjective Information Pt. reports she underwent right TKA on 10/05/24. She reports that she has been doing exercise 1x/ day since returning. She reports that her sisters are helping her throughout the day, but she is home alone in the evening. She states that she is taking pain medication 3x/day currently. She reports that prior to surgery she was independent with all IADL's. She was driving and navigating steps, only with pain. She reports she did not use an AD, but is currently using a walker. She reports that her goal for therapy is to improve her knee mobility, return to walking normal and return to driving. Reported Pain Level Pain Score 3: Self Report Assessment PT Clinical Summary Pt. is a 74 year old female who enters the clinic 9 days post right TKA. She presents with noted right l.e. edema, impaired right knee ROM, impaired right l.e. strength, impaired gait and functional decline. Continued skilled PT is indicated in order to improve these areas to allow for pt. to achieve her goal of return to all normal IADL's without use of an AD. Plan of Care Interventions Electrical Stimulation,Gait Training,Hot Pack/Cold Pack,Manual Therapy,Neuro Re-education,Patient/ Caregiver Education,Therapeutic Activities, Therapeutic Exercise PT Services Indicated Yes Treatment Frequency and 2x/week x 10 visits Duration These treatments will address the objective and functional deficits as defined above. The patient will be advanced safely and appropriately in order for the patient to progress towards his/her prior level of function. Additional exercises will be introduced and as well as a comprehensive home exercise program upon discharge, if needed, ?to ensure carryover of functional gains achieved in the clinic. This treatment plan has been reviewed and agreement upon by the patient.
--- NOTE | 2024-10-14 13:59 | OPREHPOC ---
Outpatient Therapy Plan of Care This is a Multidisciplinary Plan of Care that may contain components documented by all disciplines (PT, OT, and ST.) PT Problem 1 PT Problem #1 Knowledge Deficit PT Goal 1 Goal / Goal Update Pt. will be independent with a HEP focusing on ROM baptist at the right knee. Target Visit 2 PT Problem 2 PT Problem #2 Impaired Range of Motion PT Goal 1 Goal / Goal Update Pt. will achieve 0-130 degrees right knee AROM Target Visit 10 PT Problem 3 PT Problem #3 Impaired Gait PT Goal 1 Goal / Goal Update Pt. will be able to ambulate without an AD with equal right and left stance time. pt. will complete the 6 minute walk test with a distance of 1200' indicating capability to return to independent community navigation. Pt. will navigate 10 steps with a reciprocal pattern. Target Visit 10 PT Problem 4 PT Problem #4 Impaired Strength PT Goal 1 Goal / Goal Update Pt. will present with ability to complete 20 SLR without lag Pt. will present with 5/5 gross right l.e. strength Target Visit 10
--- NOTE | 2024-11-16 11:15 | OPREHPOC ---
Outpatient Therapy Plan of Care This is a Multidisciplinary Plan of Care that may contain components documented by all disciplines (PT, OT, and ST.) PT Problem 1 PT Problem #1 Knowledge Deficit PT Goal 1 Goal / Goal Update Pt. will be independent with a HEP focusing on ROM yazidism at the right knee. Target Visit 2 Progress Met PT Problem 2 PT Problem #2 Impaired Range of Motion PT Goal 1 Goal / Goal Update Pt. will achieve 0-130 degrees right knee AROM Achieved 127 degrees Target Visit 10 Progress Partially Met PT Problem 3 PT Problem #3 Impaired Gait PT Goal 1 Goal / Goal Update Pt. will be able to ambulate without an AD with equal right and left stance time. pt. will complete the 6 minute walk test with a distance of 1200' indicating capability to return to independent community navigation. Pt. will navigate 10 steps with a reciprocal pattern. Target Visit 10 Progress Met PT Problem 4 PT Problem #4 Impaired Strength PT Goal 1 Goal / Goal Update Pt. will present with ability to complete 20 SLR without lag Pt. will present with 5/5 gross right l.e. strength Target Visit 10 Progress Partially Met
--- NOTE | 2024-11-16 11:15 | PTOPDC ---
Assessment and note entered by Cristian Porter, PT Evaluation Information Assessment Status Discharge ICD-10 Condition Codes (PT) Pain in right knee M25.561,Aftercare following joint replacement surgery Z47.1 Onset 10/05/24 Subjective Information Pt. reports she underwent right TKA on 10/05/24. She reports that she has been doing exercise 1x/ day since returning. She reports that her sisters are helping her throughout the day, but she is home alone in the evening. She states that she is taking pain medication 3x/day currently. She reports that prior to surgery she was independent with all IADL's. She was driving and navigating steps, only with pain. She reports she did not use an AD, but is currently using a walker. She reports that her goal for therapy is to improve her knee mobility, return to walking normal and return to driving. Reported Pain Level Pain Score 0: Self Report Assessment PT Clinical Summary Patient has met all functional goals for therapy at this time and is suitable for discharge to [facility]. She has been compliant with exercises and will continue to work towards hip strengthening moving forward. Plan of Care PT Services Indicated Yes
--- NOTE | 2024-11-16 11:17 | PTOPDC ---
Assessment and note entered by Cristian Porter, PT Evaluation Information Assessment Status Discharge ICD-10 Condition Codes (PT) Pain in right knee M25.561,Aftercare following joint replacement surgery Z47.1 Onset 10/05/24 Subjective Information Reports that overall she feels she is doing fantastic. She has not been able to walk evenly for a long time and currently feels she can walk as far as she needs to. Pain is only present when she first gets up in the AM. Patient feels she is ready for discharge and has not concerns. Anxious to return to driving. Reported Pain Level Pain Score 0: Self Report Assessment PT Clinical Summary Patient has met all functional goals for therapy at this time and is suitable for discharge to [facility]. She has been compliant with exercises and will continue to work towards hip strengthening moving forward. Plan of Care PT Services Indicated Yes
== END 2024-11-16 13:58 | disposition home or self-care (01) ==
LOC: ANHPT 10:15
PROVIDERS: Visit Provider Orthopaedic Surgery
DX: Z47.1 Aftercare following joint replacement surgery (principal); M25.561 Pain in right knee; Z96.651 Presence of right artificial knee joint
CPT/HCPCS: 97110; 97116; 97140; 97161; 97530